=== PATIENT | male | born 1960 | race Caucasian/White ===

== ENCOUNTER 2021-05-05 07:24 | Day surgery (SDC) | payer BC, SELFPAY ==
[2021-05-05] MEDS ORDERED: BUPIVACAINE 0.25% PF 10 ML VIAL ONE (07:45)
[2021-05-05] MEDS ORDERED: NA CHLORIDE 0.9% 50 ML ONE (07:46)
[2021-05-05] MEDS ORDERED: HEPARIN 5000 UNIT/ML 1 ML VIAL ONE (07:46)
[2021-05-05] MEDS ORDERED: NA CHLORIDE 0.9% 1,000 ML ONE (07:46)
[2021-05-05] MEDS ORDERED: CEFAZOLIN/NS 1gm 1 GM/50 ML BAG ONE (07:47)
[2021-05-05] MEDS ORDERED: propofoL 200 MG/20 ML VIAL IV ONE (08:47)
[2021-05-05] MEDS ORDERED: FENTANYL CITR 100 MCG/2 ML ONE (08:47)
[2021-05-05] MEDS ORDERED: MIDAZOLAM HCL 2 MG/2 ML INJ ONE (08:47)
[2021-05-05] MEDS ORDERED: LIDOCAINE 1% MPF 5 ML VIAL ONE (08:47)
[2021-05-05] MEDS ORDERED: KETOROLAC 30 MG/ML INJ ONE (09:08)
[2021-05-05] MEDS ORDERED: ONDANSETRON 4 MG/2 ML VIAL ONE (09:08)
--- NOTE | 2021-05-05 09:45 | P.OP ---
Preoperative diagnosis: Esophageal Cancer Postoperative diagnosis: Esophageal Cancer Primary procedure: Placement of Chemotherapy Port - Port a cath Secondary procedure: ultrasound and flouroscopy used Anesthesia: GETA + Local Estimated blood loss: <5cc Specimen: none Findings: flouroscopy and ultrasound confirmed position Complications: None Implants: Bard implantable port Transferred to: Recovery Room Condition: Good
--- NOTE | 2021-05-05 10:23 | RAD REPORT ---
EXAM DESCRIPTION: RAD - Chest Single View - 05/05/2021 10:09 am CLINICAL HISTORY: s/p port a cath insertion COMPARISON: CT RAD RX FIELD SPINE dated 04/18/2021 FINDINGS: Lines: Right IJ approach Port-A-Cath with tip overlying the SVC. Lungs: Chronic subpleural reticular opacities bilaterally. No acute process. Pleural: No significant pleural effusions or pneumothorax. Cardiac: The heart size is within normal limits. Bones: No acute fractures. Other: IMPRESSION: Chronic changes without superimposed acute process. Right IJ approach Port-A-Cath with t ip overlying the SVC. No pneumothorax.
[2021-05-05 10:39] VITALS: BP 112/69; TEMP 97; O2SAT 96
--- NOTE | 2021-05-05 10:52 | RAD REPORT ---
EXAM DESCRIPTION: RAD - Fluoroscopy >1 Hr - 05/05/2021 9:54 am CLINICAL HISTORY: PORT A CATH PLACEMENT COMPARISON: No comparisons FINDINGS/IMPRESSION: Multiple intraoperative fluoroscopic images were submitted showing placement of a right IJ approach Port-A-Cath. The tip overlies the SVC. Total fluoro time: 0.6 minutes Total dose: 5.77 mGy Four images submitted.
--- NOTE | 2021-05-05 18:58 | OP ---
Date of Procedure: 05/05/2021 Surgeon: Jose Tran MD, Preoperative Diagnosis: Esophageal cancer. Postoperative Diagnosis: Esophageal cancer. Procedure Performed: Placement of a chemotherapy port, Port-A-Cath in the right internal jugular vei n. Secondary Procedure: Ultrasound fluoroscopy utilized with interpretation intraoperatively for positi oning. Anesthesia: General endotracheal plus local with 0.25% Marcaine without epinephrine. Estimated Blood Loss: Less than 5 cc. Specimen: None. Findings: Fluoroscopic and ultrasound guidance confirmed position at the confluence of the SVC and t he port flushed easily and it was packed with heparin. Complications: None. Implants: Bard implantable port and with subcutaneous pump. Disposition: The patient was transferred to recovery room in good condition. Procedure In Detail: After informed consent was obtained, patient was brought to the operating room, prepped and draped in the usual sterile fashion after adequate anesthesia was achieved. Patient was placed in steep Trendelenburg position. At this point, I used the ultrasound guidance to cannulate the right internal jugular vein under ultrasound guidance. A micro wire was advanced at this point. Needle was removed. Fluoroscopy confirmed position at the SVC. At this point, I made a daren incisi on overlying the insertion site and then I placed the microintroducer sheath and the micro wire was r emoved. A standard wire was advanced at this point. Fluoroscopy once again confirmed position at th e SVC and into the right atrium. At this point, I located a position on the chest wall in the infrac lavicular position, anesthetized the skin and subcutaneous tract up to the insertion site. I removed some of the adipose tissue down to the prepectoral fascia to allow for implantation of the port. I then used a tunneling device, brought the port tubing into the insertion site and then removed the mi crointroducer sheath and using Seldinger technique, I advanced the standard introducer sheath at this point, and using fluoroscopic guidance, I introduced the catheter into the SVC confluence. At this point, I had clamped off the catheter and ultimately the wire and introducer sheath were removed. At this point, I then brought the lock for the port on and placed it on the tubing and trimmed the cath eter appropriately, placed it onto the port and placed a locked collar in place. At this point, I te sted the port with sterile saline and it flushed quite easily. Fluoroscopy confirmed position once a gain after appropriately trimming the catheter. I then secured it to the chest wall with the three 2 -0 Prolene sutures and tested the port again with sterile saline after it was in the anatomic positio n and it flushed quite easily. Fluoroscopy confirmed position one last time. I then irrigated both incision sites, closed the neck insertion site with an interrupted 3-0 nylon suture and a sterile brenda ssing placed over top. I then turned my attention at the port site. I irrigated this area once agai n. Hemostasis was easily achieved without any additional hemostatic maneuvers at this point. I then closed the deep dermal layer with interrupted 3-0 Vicryl sutures and then closed the skin with a 4-0 Monocryl in interrupted fashion. Dermabond was placed over the top. I then packed the port with he salma super flush at this point, and the patient was taken out of Trendelenburg position. The proced ure tolerated the procedure well without evidence of complication and transferred to PACU in good con dition. All counts were correct at the end of the case. ANNAMARIE/TRAMAINE Voice ID: [id number] Report ID: [id number]
== END 2021-05-05 11:35 | disposition home or self-care (01) ==
LOC: OR 07:24
PROVIDERS: ATTEND Surgery
PROC: 0JH60WZ Insertion of Totally Implantable Vascular Access Device into Chest Subcutaneous Tissue and Fascia, Open Approach (ICD-10-PCS; principal; 2021-05-05 08:45)
DX: C15.9 Malignant neoplasm of esophagus, unspecified (principal); Z20.822 Contact with and (suspected) exposure to COVID-19
CPT/HCPCS: 82947; 71045; 36561; U0003; J2704; J1644 ×2; J2250; J3010; J0690; J7030; J2405

== ENCOUNTER 2021-05-26 11:09 | Emergency (ER) | payer BC, SELFPAY ==
--- OUTSIDE RECORDS SUMMARY | 2021-05-26 11:12 | XMS REPORT | Continuity of Care Document ---
:1960 Author Organization [facility] t Address [address] [place] [address] Care Team Providers Name Role Phone Kyle BECERRA Primary Care Physician Unavailable NELLY BUTLER Attending Clinician Unavailable CARRIE Attending Clinician Unavailable Singer CHOWDARY Attending Clinician GARCÍA Attending Clinician Unavailable IHDE_G Attending Clinician Unavailable HUTTON_L Attending Clinician Unavailable NELLY BUTLER Admitting Clinician Unavailable GARCÍA Admitting Clinician Unavailable IHDE_G Admitting Clinician Unavailable HUTTON_L Admitting Clinician Unavailable Payers Payer Name Policy Type Policy Number Effective Date Expiration Date S the neurom[employer] centermelania BCBS ADV O [id number] 2021 EXCHANGE 00:00:00 BLUE ADVANTAGE [id number] [facility] [place] Problems Condition Condition Condition Status Onset Resolution Last Treating Co mments Source Name Details Category Date Date Treatment Clinician Date Esophageal Esophageal Disease [facility]01 [place] (HCCode) (HCCode) 00:00: of 00 Medicin e Ureteric Ureteric Problem Active [place] [facility] Allergies, Adverse Reactions, Alerts Allergy Allergy Status Severity Reaction(s) Onset Inactive Treating Comm ents Source Name Type Date Date Clinician NO KNOWN Drug Active Univers ALLERGIE Class ity of S [facility] Social History Social Habit Start Date Stop Date Quantity Comments Source Exposure to Not sure [facility] e SARS-CoV-2 (event) of Med icine History [facility] ge Alcohol Frequency of Medi cine History [facility] ge Alcohol Std Drinks of Med icine History [facility] Alcohol Binge of Medicine Alcohol intake 2021-03-03 2021-03-03 Current drinker [facility] 00:00:00 00:00:00 of alcohol of Medicine (finding) Alcohol Comment 2021-03-02 2021-03-02 minimual [facility] 00:00:00 00:00:00 of Medicine Cigarettes smoked 2021-03-02 2021-03-02 [facility] current (pack per 00:00:00 00:00:00 of Medi day) - Reported Tobacco use and 2021-03-02 2021-03-02 Smokeless tobacco [facility] exposure 00:00:00 00:00:00 non-user of Medicine Sex Ass[birth year] [facility] llege 00:00:00 00:00:00 of Medicine Smoking Status Start Date Stop Date Source Unknown if ever smoked [facility] Ex-smoker 2021-03-02 00:00:00 2021-03-02 00:00:00 [facility] ollekayla of Medicine Medications Ordered Filled Start Stop Current Ordering Indication Dosage Frequency Signature Comments Components Source Medication Medication Date Date Medication? Clinician (SIG) Name Name iopamidol 2020- No [id number] 120mL 120 mL, Univers (ISOVUE 12-23 Intravenou ity o f 370-500 mL) 14:54: 14:54 s, ONCE, 1 [place] injection 00 :00 dose, On Medica l 120 mL Fri Branch 12/23/20 at 1015, Routine dexamethaso 2020- No 10mg 10 mg, IV Univers ne 12-23 Push, ity of (DECADRON 14:45: 14:07 [place] PHOSPHATE[place] 00 :00 dose, On Medic al injection Fri Branch 10 mg 12/23/20 at 0945, STAT iohexol 2020- No [id number] 25mL 25 mL, Uni vers (OMNIPAQUE 12-23 Oral, ity of 350 BULK) 14:15: 14:05 ONCE, 1 [place] 25 mL 00 :00 dose, On Medical Fri Branch 12/23/20 at 0915, Routine NaCl 0.9% No 500mL at 999 Univ ers (NS) bolus 12-23 mL/hr, 500 it y of infusion 13:45: 15:12 mL, IV [place] 500 mL 00 :00 Infusion, Medical ONCE, 1 Branch dose, On 12/23/20 at 0845, STAT sucralfate Yes [id number] 1000mg Take 10 mL Univers (CARAFATE) 12-23 by mouth ity o f 100 mg/mL 00:00: before [place] suspension 00 meals and Medi linus at Branch bedtime. glimepiride Yes 2mg Take 2 mg B [place] (AMARYL) 2 12-15 by mouth Colle ge MG tablet 00:00: daily. of Medicin e metformin metformin No 2 BID metformin [place] 500 mg 500 mg 500 mg da tablet Take tablet Take tablet Medical 2 tablets 2 tablets Take 2 [place] up twice a day twice a day tablets by oral by oral twice a route. route. day by oral route. Vital Signs Vital Name Observation Time Observation Value Comments Source Systolic blood 2021-03-02 21:33:00 159 mm[Hg] [facility] pressure Medicine Diastolic blood 2021-03-02 21:33:00 92 mm[Hg] [facility] Medicine Heart rate 2021-03-02 21:33:00 83 /min [facility] Body temperature 2021-03-02 21:33:00 36.83 [facility] Body weight 2021-03-02 21:33:00 86.183 kg [facility] Systolic blood 2020-12-23 17:00:00 151 mm[Hg] Univer sity of [facility] Diastolic blood 2020-12-23 17:00:00 81 mm[Hg] Unive rsity [facility] Heart rate 2020-12-23 17:00:00 65 /min Universi ty of [facility] Respiratory rate 2020-12-23 17:00:00 18 /min [facility] Oxygen saturation in 2020-12-23 17:00:00 97 /min [facility] Arterial blood by [facility] Pulse oximetry Branch Body temperature 2020-12-23 13:31:00 36.61 Daisy [facility] Body weight 2020-12-23 13:31:00 86.183 kg [facility] BP Diastolic 2019-05-05 00:00:00 80 mm[Hg] [facility] Height 2019-05-05 00:00:00 69 [in_i] [facility] BMI (Body Mass 2019-05-05 00:00:00 32.3 kg/m2 [facility] specialist Medical Index) Group BP Systolic 2019-05-05 00:00:00 138 mm[Hg] [facility] Body Weight 2019-05-05 00:00:00 218.9 [lb_av] [facility] Procedures Procedure Date / Time Performed Performing Clinician Lisa e CT ABDOMEN PELVIS W 2020-12-23 15:07:47 Roberta García [facility] CONTRAST [facility] COMP. METABOLIC PANEL 2020-12-23 14:05:00 Roberta García [facility] ([id number]) [facility] CBC WITH DIFF 2020-12-23 14:05:00 Singer [facility] XR CHEST 1 VW 2020-12-23 14:02:59 [facility] NOTICE OF PRIVACY 2020-12-23 13:28:24 Doctor Unassigned, No [facility] PRACTICES Name [facility] CONSENT/REFUSAL FOR 2020-12-23 13:28:08 Doctor Unassigned, No [facility] DIAGNOSIS AND Name Medical [place] TREATMENT Plan of Care Planned Activity Planned Date Details Comments Source Future Scheduled 2021-03-08 Screening for malignant [facility] 13:18:05 neoplasm of colon Medicine (procedure) [code = 384039988] Future Scheduled 2021-03-08 COVID-19 Vaccine (1) [facility] 13:18:05 [code = COVID-19 Vaccine Med icine (1)] Future Scheduled 2021-03-08 TETANUS SHOT (ADULT) [facility] 13:18:05 [code = TETANUS SHOT Medicin e (ADULT)] Future Scheduled 2021-03-08 Hepatitis C screening Ba [facility] 13:18:05 (procedure) [code = Medicine 645698527] Future Scheduled 2021-03-08 Human immunodeficiency B [facility] 13:18:05 virus screening Medicine (procedure) [code = 730905789] Future Scheduled 2021-03-08 ZOSTER VACCINE (1 of 2) [facility] 13:18:05 [code = ZOSTER VACCINE (1 Me dicine of 2)] Future Scheduled 2021-03-08 FLU VACCINE > 6 MONTHS B [facility] 13:18:05 [code = FLU VACCINE > 6 Medi cine MONTHS] Encounters Start End Encounter Admission Attending Care Care Encounter Source Date/Time Date/Time Type Type Clinicians Facility Department ID 2021-05-23 Outpatient LESLYE ZACARIAS Surgery [id number] [facility] 10:48:50 EMILY 2021-03-02 2021-03-08 Office SILVIA BUTLER [id number] [facility] 14:53:08 19:53:03 Visit EMILY AMBULATOR [id number] College Y 0.2.7.2.686 of [id number] [facility] 810 e 2020-12-23 2020-12-23 Emergency KRISTIN García [id number] Univers 08:31:00 12:44:00 Roberta Thao 350.1.13.10 i ty [facility] 4.2.7.2.686 [facility] [id number] [facility] 084 Branch 2020-12-23 2020-12-23 Emergency X SINGER VAREBECCA ERT [id number] Univers 08:31:00 12:44:00 ROBERTA gorman of [facility] 2020-02-17 2020-02-17 Outpatient IHDE_G [facility] [id number] [place] 02:41:00 02:41:00 118 Medical Group 2019-11-26 2019-11-26 Outpatient IHDE_G [facility] [id number] 200 [place] 12:08:00 12:08:00 827 da Medical Group 2019-05-06 2019-05-06 Outpatient IHDE_G [facility] [id number] 200 [place] 11:15:00 11:15:00 206 Medical Group 2019-05-06 2019-05-06 Outpatient IHDE_G MMG MMG [id number] 200 [place] 06:49:00 06:49:00 205 Medical Group 2019-05-05 2019-05-05 Outpatient IHDE_G MMG MM [id number] 200 [place] 05:55:00 05:55:00 204 Medical Group 2019-05-05 2019-05-05 Kartik [facility] [place] - [id number] M at[place] 00:00:00 00:00:00 Javier Jimenez MD: Medical Medica [address], [place] [address] , Ph. [phone] 2019-04-28 2019-04-28 Outpatient HUTTON_L MMG [facility] [id number] [place] 11:31:00 11:31:00 128 [facility] Results Test Description Test Time Test Comments Results Result Comments Source COMP. METABOLIC PANEL (90868) 2020-12-23 14:43:18 Test Item Value Reference Range Interpretation Comme nts NA (test code = 9452809627) 137 mmol/L 135-145 K (test code = 7679519916) 4.3 mmol/L 3.5-5.0 CL (test code = 3928274975) 104 mmol/L 98-108 CO2 TOTAL (test code = 7912472684) 27 mmol/L 23-31 AGAP (test code = 5614467216) 2-16 BUN (test code = 1221881814) 21 mg/dL 7-23 GLUCOSE (test code = 5203606919) 131 mg/dL 70-110 H CREATININE (test code = 1.20 mg/dL 0.60-1.25 1193864150) TOTAL BILI (test code = 0.4 mg/dL 0.1-1.1 8747325927) CALCIUM (test code = 1548744859) 9.4 mg/dL 8.6-10.6 T PROTEIN (test code = 0699136218) 7.7 g/dL 6.3-8.2 ALBUMIN (test code = 0069706328) 4.3 g/dL 3.5-5.0 ALK PHOS (test code = 1166278768) 70 U/L 34-122 ALTv (test code = 1742-6) 25 U/L 5-50 AST(SGOT) (test code = 3287454113) 28 U/L 13-40 eGFR (test code = 6491020602) mL/min/1.73m2 KAMRYN (test code = KAMRYN) Association of Glomerular Filtration Rate (GFR) and Staging of Kidney Disease* + +-------- + ------+| GFR (mL/min/1.73 m2) ?| With Kidney Damage ?| ?Without Kidney Damage+ +-- + +| ?>90 ?| ?Stage one ?| ? Normal ?+ +------- + -------+| ?60-89 ?| ?Stage two ?| ? Decreased GFR ? + +-------- + ------+| ?30-59 ?| ?Stage three ?| ? Stage three ? + +-------- + ------+| ?15-29 ?| ?Stage four ? | ? Stage four ?+ +------- + -------+| ?<15 (or dialysis) ? ?| ?Stage five ? | ? Stage five ?+ +------- + -------+ *Each stage assumes the associated GFR level has been in effect for at least three months. ?Stages 1 to 5, with or without kidney disease, indicate chronic kidney disease. Notes: Determination of stages one and two (with eGFR >59mL/min/1.73 m2) requires estimation of kidney damage for at least three months as defined by structural or functional abnormalities of the kidney, manifested by either:Pathological abnormalities or Markers of kidney damage (including abnormalities in the composition of the blood or urine or abnormalities in imaging tests). Lab Interpretation (test code = Abnormal 45179-9) [facility] WITH [id number] 14:37:39 Test Item Value Reference Range Interpretation Comments WBC (test code = See_Comment [Automated message] 6690-2) The system [employer] generated this result transmitted ref erence range: 4.20 - 1 0.70 10*3/?L. The re ference range was not u sed to interpret this result as normal/abnor mal. RBC (test code = See_Comment [Automated message] 789-8) The system [employer] generated this result transmitted ref erence range: 4.26 - 5 .52 10*6/?L. The re ference range was not u sed to interpret this result as normal/abnor mal. HGB (test code = 14.5 g/dL 12.2-16.4 718-7) HCT (test code = 43.3 % 38.4-49.3 4544-3) MCV (test code = 90.0 fL 81.7-95.6 787-2) MCH (test code = 30.1 pg 26.1-32.7 785-6) MCHC (test code = 33.5 g/dL 31.2-35.0 786-4) RDW-SD (test code 40.8 fL 38.5-51.6 = 33462-5) RDW-CV (test code 12.3 % 12.1-15.4 = 788-0) PLT (test code = See_Comment [Automated message] 777-3) The system [employer] generated this result transmitted ref erence range: 150 - 32 8 10*3/?L. The re ference range was not u sed to interpret this result as normal/abnor mal. MPV (test code = 9.9 fL 9.8-13.0 37094-7) NRBC/100 WBC (test See_Comment [Automat ed message] code = 5210732804) The [employer] which generated this result transmitted ref erence range: 0.0 - 10 .0 /100 WBCs. The refer ence range was not u sed to interpret this result as normal/abnor mal. NRBC x10^3 (test <0.01 See_Comment [Automated message] code = 6746097842) The syste m which generated this result transmitted ref erence range: 10*3/?L. The reference range was not used to interpr et this result as normal/abnormal . GRAN MAT (NEUT) % 68.1 % (test code = 770-8) IMM GRAN % (test 0.40 % code = 2611736810) LYMPH % (test code 21.4 % = 736-9) MONO % (test code 7.1 % = 5905-5) EOS % (test code = 2.2 % 713-8) BASO % (test code 0.8 % = 706-2) GRAN MAT 5.68 10*3/uL 1.99-6.95 x10^3(ANC) (test code = 0875085433) IMM GRAN x10^3 0.03 10*3/uL 0.00-0.06 (test code = 7592167018) LYMPH x10^3 (test 1.78 10*3/uL 1.09-3.23 code = 731-0) MONO x10^3 (test 0.59 10*3/uL 0.36-1.02 code = 742-7) EOS x10^3 (test 0.18 10*3/uL 0.06-0.53 code = 711-2) BASO x10^3 (test 0.07 10*3/uL 0.01-0.09 code = 704-7) [facility] SHOULDER JNT LT WCLINICAL INDICATION: M75.102 Unsp rotatr-cuff tear/ruptr of left shoulder, not trauma. MODALITY: Avanto 1.5 Becky 18 channel MRITECHNIQUE: Multiplanar multi sequence MRI examination of the left shoulder was performed following intra-articular gadolinium administration. Arthrogram is reported separately.IMPRESSION:1. Full-thickness tear of the supraspinatus tendon measuring 2 cm in the AP diam eter. The torn fibers are retracted 2 cm with mild atrophy with the muscle belly.2. Delamination tear of the subscapularis tendon. The long head of the biceps tendon has subluxed and is perched on thelesser tuberosity. It still inserts on the superior labrum.3. No other acute findings.4. Case discussed with referral Doctor.FINDINGS:COMPARISON: None.OSSEOUS ACROMIAL OUTLET: Changes consistent with prior acromioplasty.ROTATOR CUFF: Full-thickness tear of the supraspinatus tendon measuring at least 2 cm in the AP diameter. The torn fibers are retracted 2 cm. The infraspinatus, teres minor, and subscapularis remain intact.LABRUM AND CAPSULAR STRUCTURES: Lauren appear intact.BICEPS TENDON: Long head of biceps tendon is intact. Biceps anchor appears unremarkable.OSSEOUS STRUCTURES: No fractures ordestructive osseous lesions are detected. Marrow signal is unremarkable. Changes suggest prior acromioplasty with micro metallic artifact noted within the adjacent superior subcutaneous tissues.MISCELLANEOUS FINDINGS: No paralabral cyst. No arthritic changes glenohumeral joint.CR - XRAY ARTHROGRAM SHOULDER LT / INJECTIONCLINICAL INDICATION: M25.512 Pain in left [id number] Unsp rotatr-cuff tear/ruptr of left shoulder, not traumaTECHNIQUE: Risks and benefits of the examination were discussed with the patient.Informed consent was obtained. The patient was prepped and draped in the usual sterile fashion. Local anesthesia was affected with lidocaine 1% without epinephrine, administered subcutaneously. A 25gauge needle was directed into the left glenohumeral joint under fluoroscopic guidance via anterior approach. A small amount of nonionic contrast was injected, demonstrating intra-articular position of needle tip. Subsequently, approximately 10 ml Gadolinium solution (gadolinium in normal saline, 1:200) was injected into the joint without incident. Multiple spot films were obtained. No complications were encountered.Total fluoroscopy time: 0.4FINDINGS:COMPARISON: NoneArthrographic appearance ofthe glenohumeral joint is unremarkable. Contrast communication between the glenohumeral joint and subacromial - subdeltoid bursa is not evident.IMPRESSION:Technically successful intra-articular gadolinium injection, left shoulder. Radiology Exposure Data - PQRS 145: 6045F For Official Use Only"
[2021-05-26] MEDS ORDERED: LIDOCAINE VISCOUS 2% SOLN 15 ML UDC ONE (11:38)
[2021-05-26 11:59] LABS: Absolute Lymphocytes (CBC) 0.2 K/uL (0.7-4.9); Hematocrit 40.8 % (39.6-49.0); Lymphocytes % 4.1 % (15.3-44.8); MPV 7.5 fL (7.6-11.3); RBC Red Blood Cell Count 4.67 M/uL (4.33-5.43)
[2021-05-26] MEDS ORDERED: MORPHINE 4 MG/ML SYR ONE (12:05)
[2021-05-26] MEDS ORDERED: NA CHLORIDE 0.9% 1,000 ML ONE (12:05)
[2021-05-26] MEDS ORDERED: ONDANSETRON 4 MG/2 ML VIAL ONE (12:05)
[2021-05-26 12:16] LABS: Albumin 2.8 g/dL (3.4-5.0); Bilirubin Total 0.3 mg/dL (0.2-1.0); Protein, Total 8.1 g/dL (6.4-8.2)
[2021-05-26 12:24] LABS: Potassium 4.6 mmol/L (3.5-5.1)
--- NOTE | 2021-05-26 12:47 | ER ---
Nurse's Notes [facility] Name: Chuy Mccoy Age: 60 yrs Sex: Male : 1960 Arrival Date: 05/26/2021 Time: 11:11 Bed 5 Private MD: Diagnosis: Upper abdominal pain, unspecified Presentation: 05/26 11:27 Chief complaint: Patient states: Was sent to ED from [facility], [place], hx of esophageal vg1 cancer/tumor of esophagus; states during chemo was experiencing esophageal pain and was having intolerance of fluids. Sates pain 01/08. Coronavirus screen: Vaccine status: Patient reports being unvaccinated. Client denies travel out of the [place] in the last 14 days. Ebola Screen: Patient negative for fever greater than or equal to 101.5 degrees Fahrenheit, and additional compatible Ebola Virus Disease symptoms. Initial Sepsis Screen: Does the patient meet any 2 criteria? No. Patient's initial sepsis screen is negative. Does the patient have a suspected source of infection? No. Patient's initial sepsis screen is negative. Risk Assessment: Do you want to hurt yourself or someone else? Patient reports no desire to harm self or others. Onset of symptoms was May 26, 2021. 11:27 Method Of Arrival: Ambulatory vg1 11:27 Acuity: BERTA 3 vg1 Triage Assessment: 11:30 General: Appears in no apparent distress. uncomfortable, Behavior is calm, cooperative. vg1 Pain: Complains of pain in throat Pain currently is 10 out of 10 on a pain scale. Pain began 30 min ago. EENT: Throat is clear. Neuro: Level of Consciousness is awake, alert, obeys commands, Oriented to person, place, time, situation. Cardiovascular: Patient's skin is warm and dry. Respiratory: Airway is patent Respiratory effort is even, unlabored. GI: Reports intolerance of fluids. : No signs and/or symptoms were reported regarding the genitourinary system. Derm: Skin is intact, is healthy with good turgor. Musculoskeletal: Circulation, motion, and sensation intact. Historical: - Allergies: 11: No Known Allergies; vg1 - PMHx: 11:30 Cancer; Diabetes mellitus; vg1 - Immunization history:: Client reports having NOT received the Covid vaccine. - Social history:: Smoking status: Patient reports the use of cigarette tobacco products, denies chronic smoking, but will smoke occasionally. - Family history:: not pertinent. Screenin:31 Abuse screen: Denies threats or abuse. Nutritional screening: No deficits noted. vg1 Tuberculosis screening: No symptoms or risk factors identified. Fall Risk No fall in past 12 months (0 pts). No secondary diagnosis (0 pts). IV access (20 points). Ambulatory Aid- None/Bed Rest/Nurse Assist (0 pts). Gait- Normal/Bed Rest/Wheelchair (0 pts) Mental Status- Oriented to own ability (0 pts). Total Brandon Fall Scale indicates No Risk (0-24 pts). Assessment: 11:31 Reassessment: SEE TRIAGE. vg1 12:14 Reassessment: Patient appears in no apparent distress at this time. Patient and/or vg1 family updated on plan of care and expected duration. Pain level reassessed. Patient is alert, oriented x 3, equal unlabored respirations, skin warm/dry/pink. 13:00 Reassessment: Patient appears in no apparent distress at this time. Patient and/or jd3 family updated on plan of care and expected duration. Pain level reassessed. Patient is alert, oriented x 3, equal unlabored respirations, skin warm/dry/pink. Vital Signs: 11:27 BP 136 / 78; Pulse 95; Resp 18; Temp 97.5; Pulse Ox 100% ; Weight 74.84 kg; Height 5 vg1 ft. 9 in. (175.26 cm); Pain 10/10; 11:30 BP 109 / 71; Pulse 85; Resp 16; Pulse Ox 100% ; vg1 11:27 Body Mass Index 24.37 (74.84 kg, 175.26 cm) vg1 ED Course: 11:11 Patient arrived in ED. ds1 11:15 Leroy Narayan MD is Attending Physician. ma2 11:27 Lucero Liu, RN is Primary Nurse. vg1 11:29 Triage completed. vg1 11:30 Arm band placed on. vg1 11:31 Patient has correct armband on for positive identification. Bed in low position. Call 1 light in reach. Side rails up X 1. Adult w/ patient. 11:31 No provider procedures requiring assistance completed. vg1 11:44 CBC with Diff Sent. tp1 11:44 CMP Sent. tp1 11:44 Inserted saline lock: 20 gauge in right antecubital area, using aseptic technique. tp1 Blood collected. 12:46 Malachi Carter MD is Referral Physician. ma2 13:01 IV discontinued, intact, bleeding controlled, No redness/swelling at site. Pressure jd3 dressing applied. Administered Medications: 11:38 Drug: Lidocaine Gel 2 % 1 application Route: Mucous Membrane; vg1 12:12 Follow up: Response: No adverse reaction; Pain is decreased vg1 12:05 Drug: Zofran (Ondansetron) 4 mg Route: IVP; Site: right antecubital; vg1 13:02 Follow up: Response: No adverse reaction jd3 12:05 Drug: NS 0.9% 1000 ml Route: IV; Rate: 1 bolus; Site: right antecubital; vg1 13:02 Follow up: Response: No adverse reaction; IV Status: Completed infusion jd3 12:07 Drug: morphine 4 mg Route: IVP; Site: right antecubital; vg1 13:02 Follow up: Response: No adverse reaction; RASS: Alert and Calm (0) jd3 Outcome: 12:46 Discharge ordered by MD. ma2 13:00 Discharged to home ambulatory, with family. jd3 13:00 Condition: stable 13:00 Discharge instructions given to patient, family, Instructed on discharge instructions, follow up and referral plans. medication usage, Demonstrated understanding of instructions, follow-up care, medications, Prescriptions given X 1. 13:02 Patient left the ED. jd3 Signatures: Kaur Randle Jonathon, RN RN jd3 Leroy Narayan MD MD ma2 Garcia, Victoria, RN RN vg1 Isidra Morris tp1
--- NOTE | 2021-05-26 12:47 | EDPHYS ---
Physician Documentation [facility] Name: Chuy Mccoy Age: 60 yrs Sex: Male : 1960 Arrival Date: 05/26/2021 Time: 11:11 Bed 5 Private MD: ED Physician Leroy Narayan HPI: 05/26 11:49 This 60 yrs old Male presents to ER via Ambulatory with complaints of sent by cancer ma2 center. 11:49 60-year-old male, with esophageal cancer, sent here by radiation oncologist for pain ma2 management as he is out of his hydrocodone, and he is having painful swallowing that has been constant for 2 months moderate, he states that there is no new symptoms over the last 2 weeks, it's a constant chronic dysphagia, and he is out of his hydrocodone. Historical: - Allergies: 11:30 No Known Allergies; vg1 - PMHx: 11:30 Cancer; Diabetes mellitus; vg1 - Immunization history:: Client reports having NOT received the Covid vaccine. - Social history:: Smoking status: Patient reports the use of cigarette tobacco products, denies chronic smoking, but will smoke occasionally. - Family history:: not pertinent. ROS: 11:49 Constitutional: Negative for fever, chills, and weight loss. ma2 11:49 All other systems are negative. Exam: 11:49 Constitutional: This is a well developed, well nourished patient who is awake, alert, ma2 and in no acute distress. Head/Face: Normocephalic, atraumatic. Eyes: Pupils equal round and reactive to light, extra-ocular motions intact. Lids and lashes normal. Conjunctiva and sclera are non-icteric and not injected. Cornea within normal limits. Periorbital areas with no swelling, redness, or edema. ENT: Nares patent. No nasal discharge, no septal abnormalities noted. Tympanic membranes are normal and external auditory canals are clear. Oropharynx with no redness, swelling, or masses, exudates, or evidence of obstruction, uvula midline. Mucous membranes moist. Neck: Trachea midline, no thyromegaly or masses palpated, and no cervical lymphadenopathy. Supple, full range of motion without nuchal rigidity, or vertebral point tenderness. No Meningismus. Chest/axilla: Normal chest wall appearance and motion. Nontender with no deformity. No lesions are appreciated. Cardiovascular: Regular rate and rhythm with a normal S1 and S2. No gallops, murmurs, or rubs. Normal PMI, no JVD. No pulse deficits. Respiratory: Lungs have equal breath sounds bilaterally, clear to auscultation and percussion. No rales, rhonchi or wheezes noted. No increased work of breathing, no retractions or nasal flaring. Abdomen/GI: Soft, non-tender, with normal bowel sounds. No distension or tympany. No guarding or rebound. No evidence of tenderness throughout. Skin: Warm, dry with normal turgor. Normal color with no rashes, no lesions, and no evidence of cellulitis. MS/ Extremity: Pulses equal, no cyanosis. Neurovascular intact. Full, normal range of motion. Neuro: Awake and alert, GCS 15, oriented to person, place, time, and situation. Cranial nerves II-XII grossly intact. Motor strength 5/5 in all extremities. Sensory grossly intact. Cerebellar exam normal. Normal gait. Vital Signs: 11:27 BP 136 / 78; Pulse 95; Resp 18; Temp 97.5; Pulse Ox 100% ; Weight 74.84 kg; Height 5 vg1 ft. 9 in. (175.26 cm); Pain 10/10; 11:30 BP 109 / 71; Pulse 85; Resp 16; Pulse Ox 100% ; vg1 11:27 Body Mass Index 24.37 (74.84 kg, 175.26 cm) vg1 MDM: 11:23 Patient medically screened. ma2 12:46 Differential diagnosis: Chronic abdominal pain, likely from esophageal cancer, versus ma2 duodenal ulcer versus gastritis. Data reviewed: vital signs, nurses notes. Counseling: I had a detailed discussion with the patient and/or guardian regarding: the historical points, exam findings, and any diagnostic results supporting the discharge/admit diagnosis, the presence of at least one elevated blood pressure reading (>120/80) during this emergency department visit, the need for outpatient follow up. Response to treatment: the patient's symptoms have markedly improved after treatment. 05/26 11:23 Order name: CBC with Diff ma2 05/26 11:23 Order name: CMP; Complete Time: 12:46 ma2 Administered Medications: 11:38 Drug: Lidocaine Gel 2 % 1 application Route: Mucous Membrane; vg1 12:12 Follow up: Response: No adverse reaction; Pain is decreased vg1 12:05 Drug: Zofran (Ondansetron) 4 mg Route: IVP; Site: right antecubital; vg1 13:02 Follow up: Response: No adverse reaction jd3 12:05 Drug: NS 0.9% 1000 ml Route: IV; Rate: 1 bolus; Site: right antecubital; vg1 13:02 Follow up: Response: No adverse reaction; IV Status: Completed infusion jd3 12:07 Drug: morphine 4 mg Route: IVP; Site: right antecubital; vg1 13:02 Follow up: Response: No adverse reaction; RASS: Alert and Calm (0) jd3 Disposition Summary: 05/26/21 12:46 Discharge Ordered Location: Home ma2 Condition: Stable ma2 Diagnosis - Upper abdominal pain, unspecified ma2 Followup: ma2 - With: Private Physician - When: Tomorrow - Reason: Continuance of care Followup: ma2 - With: - When: Tomorrow - Reason: If symptoms return, Continuance of care Discharge Instructions: - Discharge Summary Sheet ma2 - Abdominal Pain, Adult ma2 Forms: - Medication Reconciliation Form ma2 - Thank You Letter ma2 - Antibiotic Education ma2 - Prescription Opioid Use ma2 Prescriptions: - Diclofenac Sodium 75 mg Oral Tablet Sustained Release - take 1 tablet by ORAL route 2 times per day; 30 tablet; Refills: 0, Product ma2 Selection Permitted Signatures: Dispatcher [employer] Leroy Granados MD MD ma2 Lucero Liu RN FEDE vg1 Chun Thornton RN jd3
[2021-05-26 13:09] VITALS: TEMP 97.5; O2SAT 100
[2021-05-26 13:10] VITALS: BP 109/71
[2021-05-26 14:05] LABS: Blood Morphology Comment NOT SEEN (NOT SEEN); Platelet Estimate ADEQ; White Blood Cell Scan OK (OK)
== END 2021-05-26 13:02 | disposition home or self-care (01) ==
LOC: ER 11:09
DX: R07.0 Pain in throat (principal); C15.9 Malignant neoplasm of esophagus, unspecified; F17.210 Nicotine dependence, cigarettes, uncomplicated
CPT/HCPCS: 96361; 85025; 36415; 80053; 96375; 96374; 99284; J7030; J2405

== ENCOUNTER 2021-07-31 14:29 | Emergency (ER) | payer BC, SELFPAY ==
--- OUTSIDE RECORDS SUMMARY | 2021-07-31 14:33 | XMS REPORT | Continuity of Care Document ---
:1960 Author Organization [facility] t Address [address] [place] [address] Care Team Providers Name Role Phone Kyle BECERRA Primary Care Physician Unavailable NELLY BUTLER Attending Clinician Unavailable Padmaja MARSHALL Attending Clinician SHRAVAN GIRARD Attending Clinician Unavailable LAYLA Attending Clinician Unavailable IHDE_G Attending Clinician Unavailable PADMAJA Attending Clinician Unavailable Singer CHOWDARY Attending Clinician Attending Clinician Unavailable TOYIN Attending Clinician Unavailable NELLY BUTLER Admitting Clinician Unavailable ROSALVA LORENZ Admitting Clinician Unavailable IHDE_G Admitting Clinician Unavailable GARCÍA Admitting Clinician Unavailable HUTTON_L Admitting Clinician Unavailable Payers Payer Name Policy Type Policy Number Effective Date Expiration Date S ourmelania BCBS ADV HMO [id number] 2021 EXCHANGE 00:00:00 Problems Condition Condition Condition Status Onset Resolution Last Treating Co mments Source Name Details Category Date Date Treatment Clinician Date Esophageal Esophageal Disease Active [facility] adenocarci adenocarci 3-10 [employer] llege noma noma 00:00: of 00 Medicin e Ureteric Ureteric Disease Active [facility] 3-10 [facility] 00:00: of 00 Medicin e Esophageal Esophageal Disease Active 2020-04 [facility] cancer cancer 0-01 [place] (HCCode) (HCCode) 00:00: of 00 Medicin e Diabetes Diabetes Disease Active [facility] 6-30 [place] 00:00: of 00 Medicin e Allergies, Adverse Reactions, Alerts Allergy Allergy Status Severity Reaction(s) Onset Inactive Treating Comm ents Source Name Type Date Date Clinician NO KNOWN Allergy Active [facility] NO KNOWN Drug Active [facility] Social History Social Habit Start Date Stop Date Quantity Comments Source History [facility] ge Alcohol Frequency of Medi cine History [facility] Alcohol Std Drinks of Med icine History [facility] Alcohol Binge of Medicine Alcohol intake 2021-07-09 2021-07-09 Current drinker [facility] 00:00:00 00:00:00 of alcohol of Medicine (finding) Exposure to 2021-06-19 2021-06-29 Not sure [facility] SARS-CoV-2 (event) 00:00:00 10:18:00 of Med icine Alcohol Comment 2021-03-02 2021-03-02 minimual [facility] llege 00:00:00 00:00:00 of Medicine Cigarettes smoked 2021-03-02 2021-03-02 [facility] current (pack per 00:00:00 00:00:00 of Medi cine day) - Reported Tobacco use and 2021-03-02 2021-03-02 Smokeless tobacco [facility] Chelsie exposure 00:00:00 00:00:00 non-user of Medicine Sex [birth year] [facility] llege 00:00:00 00:00:00 of Medicine Smoking Status Start Date Stop Date Source Unknown if ever smoked [facility] Ex-smoker 2021-03-02 00:00:00 2021-03-02 00:00:00 [facility] ollege of Medicine Medications Ordered Filled Start Stop Current Ordering Indication Dosage Frequency Signature Comments Components Source Medication Medication Date Date Medication? Clinician (SIG) Name Name Cyanocobala Yes 1{tbl} Take 1 Ba jeff santos (B-12) 4-07 Tablet by Luanne ege 1000 MCG 17:37: mouth of TABS 04 daily. Medicin e Nutritional Yes 1{can} Take 1-2 [facility] Supplements 4-07 Cans by Rosa Isela garza (GLUCERNA 17:37: mouth of 1.2 DENISHA OR) 04 daily. Medici n Feeding e tube morphine 10 Yes 10mg Take 10 mg Sharif MG/5ML 4-07 by mouth College solution 17:37: every 4 of 04 hours as Medicin needed. 5 e ML via J-Tube for up to 7 days Do Not exceed 60 m (30 ml / day ) ondansetron Yes Sharif (ZOFRAN-ODT 4-06 College ) 4 mg 00:00: of disintegrat 00 Medicin ing tablet e polyethylen Yes Take 17g [facility] e glycol 3-25 twice College (GLYCOLAX) 00:00: daily via of 17 GM/SCOOP 00 J tube as Med icin powder needed for e constipati on. Bisacodyl Yes 10mg Place 10 Bay[facility] or 10 MG/30ML 3-25 mg College ENEM 00:00: rectally. of 00 Medicin e Metformin 2021- Yes 5mL Take 5 mL [facility] HCl 500 -25 -25 by mouth. Colleg e MG/5ML SOLN 00:00: 04:59 of 00 :00 Medicin e fentanyl 2021-0 202- No 1{patch Place 1 [facility] (DURAGESIC) 3-25 04-10 } Patch onto C ollege 50 MCG/HR 00:00: 04:59 the skin. of patch 00 :00 Medicin e morphine 10 Yes 10mg Take 10 mg Sharif MG/5ML 3-10 by mouth College solution 11:04: every 4 of 23 hours as Medicin needed. 5 e ML via J-Tube for up to 7 days Do Not exceed 60 m (30 ml / day ) Acetaminoph 0 2021- No Take by Syeda aylor en 160 3-10 03-10 mouth. College MG/5ML SUSP 11:04: 00:00 of 23 :00 Medicin e Cyanocobala Yes 1{tbl} Take 1 [facility] min (B-12) 3-10 Tablet by Luanne ege 1000 MCG 10:57: mouth of TABS 45 daily. Medicin e Nutritional Yes 1{can} Take 1-2 Sharif Supplements 3-10 Cans by Rosa Isela garza (GLUCERNA 10:57: mouth of 1.2 DENISHA OR) 45 daily. Medici n Feeding e tube gabapentin Yes 250mg 250 mg 3 [facility] (NEURONTIN) 3-05 times College 250 MG/5ML 00:00: daily. 6ml o f solution 00 via J-Tibe Medic in e gabapentin Yes 250mg 250 mg 3 [facility] (NEURONTIN) 3-05 times College 250 MG/5ML 00:00: daily. 6ml o f solution 00 via J-Tibe Medic in e fentanyl 202- Yes 1{patch Place 1 [facility] (DURAGESIC) 3-04 23 } Patch onto C ollege 50 MCG/HR 00:00: 04:59 the skin of patch 00 :00 every 72 Medicin hours. e Magic 0 Yes 5mL Take 5 mL [facility] Mouthwash 2-25 by mouth 4 Luanne ege 00:00: times of 00 daily Medicin (before e meals and nightly). Magic 2021-0 Yes 5mL Take 5 mL [facility] Mouthwash 2-25 by mouth 4 Luanne ege 00:00: times of 00 daily Medicin (before e meals and nightly). Acetaminoph Yes 160mg Take 160 [facility] en 160 2-07 mg by College MG/5ML SUSP 00:00: mouth of 00 every 4 Medicin hours as e needed. 20.3 mls (650mg total) by feed tube Acetaminoph 0 Yes 160mg Take 160 [facility] en 160 2-07 mg by College MG/5ML SUSP 00:00: mouth of 00 every 4 Medicin hours as e needed. 20.3 mls (650mg total) by feed tube hydrocodone 0 2021- No TAKE 15 ML [facility] -acetaminop 1-27 03-10 BY MOUTH Col lege hen (HYCET) 00:00: 00:00 EVERY 4 TO of 7.5-325 00 :00 6 HOURS Medici n MG/15ML NEEDED FOR e solution PAIN iopamidol 2020- No [id number] 120mL 120 mL, Univers (ISOVUE 12-23 Intravenou [...] 12/23/20 at 0945, STAT iohexol 2020- No [id number] 25mL 25 mL, Uni vers (OMNIPAQUE 12-23 Oral, ity of 350 BULK) 14:15: 14:05 ONCE, 1 [place] 25 mL 00 :00 dose, On Medical Fri Branch 12/23/20 at 0915, Routine NaCl 0.9% 2020- No 500mL at 999 Univ ers (NS) bolus 12-23 mL/hr, 500 it y of infusion 13:45: 15:12 mL, IV [place] 500 mL 00 :00 Infusion, Medical ONCE, 1 Branch dose, On 12/23/20 at 0845, STAT sucralfate 0 Yes [id number] 1000mg Take 10 mL Univers (CARAFATE) 12-23 by mouth ity o f 100 mg/mL 00:00: before [place] suspension 00 meals and Medi denisha at [place] bedtime. sucralfate 2020-0 Yes 1g Take 1 g [place] pedro (CARAFATE) 9-24 by mouth 3 Col lege 1 GM/10ML 00:00: times of suspension 00 daily. 10 Medi mansi ML 3 x a e day after meals sucralfate 2020-0 Yes 1g Take 1 g [place] (CARAFATE) 9-24 by mouth 3 Col lege 1 GM/10ML 00:00: times of suspension 00 daily. 10 Medi mansi ML 3 x a e day after meals glimepiride 2020-0 Yes 2mg Take 2 mg [facility] (AMARYL) 2 12-15 by mouth Colle ge MG tablet 00:00: daily. of 00 Medicin e glimepiride 2021- No 2mg Take 2 mg [facility] (AMARYL) 2 12-15 by mouth Luanne ege MG tablet 00:00: 00:00 daily. of 00 :00 Medicin e metformin metformin No 2 BID metformin [place] 500 mg 500 mg 500 mg da tablet Take tablet Take tablet Medical 2 tablets 2 tablets Take 2 Thomas up twice a day twice a day tablets by oral by oral twice a route. route. day by oral route. Vital Signs Vital Name Observation Time Observation Value Comments Source Systolic blood 2021-07-06 20:52:00 97 mm[Hg] [facility] Diastolic blood 2021-07-06 20:52:00 70 mm[Hg] [facility] Medicine Heart rate 2021-07-06 20:52:00 88 /min [facility] Body temperature 2021-07-06 20:52:00 36.33 Daisy [facility] Body height 2021-07-06 20:52:00 175.3 cm [facility] Body weight 2021-07-06 20:52:00 72.031 kg [facility] BMI 2021-07-06 20:52:00 23.45 kg/m2 [facility] HEIGHT 2021-06-20 17:00:00 175.3 cm WEIGHT 2021-06-20 17:00:00 70.308 kg WEIGHT 2021-06-20 07:51:00 71 kg HEIGHT 2021-06-20 17:00:00 175.3 cm WEIGHT 2021-06-20 17:00:00 70.308 kg WEIGHT 2021-06-20 07:51:00 71 kg Systolic blood 2021-06-08 16:32:00 115 mm[Hg] [facility] pressure Medicine Diastolic blood 2021-06-08 16:32:00 73 mm[Hg] [facility] Medicine Heart rate 2021-06-08 16:32:00 107 /min [facility] Body temperature 2021-06-08 16:32:00 36.33 Daisy [facility] Body height 2021-06-08 16:32:00 175.3 cm [facility] weight 2021-06-08 16:32:00 72.576 kg [facility] BMI 2021-06-08 16:32:00 23.63 kg/m2 [facility] ollege [facility] WEIGHT 2021-06-05 09:00:00 74.617 kg WEIGHT 2021-06-02 06:00:00 72 kg HEIGHT 2021-05-31 08:38:00 175.3 cm WEIGHT 2021-05-31 08:38:00 73.846 kg HEIGHT 2021-05-30 09:51:00 177.8 cm WEIGHT 2021-05-30 09:51:00 73.029 kg WEIGHT 2021-06-05 09:00:00 74.617 kg WEIGHT 2021-06-02 06:00:00 72 kg HEIGHT 2021-05-31 08:38:00 175.3 cm WEIGHT 2021-05-31 08:38:00 73.846 kg HEIGHT 2021-05-30 09:51:00 177.8 cm WEIGHT 2021-05-30 09:51:00 73.029 kg Systolic blood 2021-03-02 21:33:00 159 mm[Hg] [facility] pressure Medicine Diastolic blood 2021-03-02 21:33:00 92 mm[Hg] [facility] Medicine Heart rate 2021-03-02 21:33:00 83 /min [facility] Body temperature 2021-03-02 21:33:00 36.83 Daisy [facility] Body weight 2021-03-02 21:33:00 86.183 kg [facility] Systolic blood 2020-12-23 17:00:00 151 mm[Hg] Univer sity of pressure [facility] Diastolic blood 2020-12-23 17:00:00 81 mm[Hg] Unive rsity of pressure [facility] Heart rate 2020-12-23 17:00:00 65 /min [facility] Respiratory rate 2020-12-23 17:00:00 18 /min [facility] saturation in 2020-12-23 17:00:00 97 /min University Arterial blood by [facility] Pulse oximetry Branch Body temperature 2020-12-23 13:31:00 36.61 Daisy [facility] Medical [place] Body weight 2020-12-23 13:31:00 86.183 kg [facility] BP Diastolic 2019-05-05 00:00:00 80 mm[Hg] [facility] Height 2019-05-05 00:00:00 69 [facility]in_i] [facility] BMI (Body Mass 2019-05-05 00:00:00 32.3 kg/m2 [facility] cardiographer Medical Index) Group BP Systolic 2019-05-05 00:00:00 138 mm[Hg] [facility] Body Weight 2019-05-05 00:00:00 218.9 [lb_av] [facility] Procedures Procedure Date / Time Performed Performing Clinician [facility] e CT ABDOMEN PELVIS W 2020-12-23 15:07:47 Harjeet García [facility] CONTRAST [facility] COMP. METABOLIC PANEL 2020-12-23 14:05:00 Harjeet García [facility] ([id number]) [facility] CBC WITH DIFF 2020-12-23 14:05:00 [facility] XR CHEST 1 VW 2020-12-23 14:02:59 [facility] NOTICE OF PRIVACY 2020-12-23 13:28:24 Doctor Unassigned, No [facility] PRACTICES Name [facility] CONSENT/REFUSAL FOR 2020-12-23 13:28:08 [facility] Name Medical [place] TREATMENT Plan of Care Planned Activity Planned Date Details Comments Source Future Scheduled 2021-07-17 Screening for malignant [facility] Test 18:25:35 neoplasm of colon of Medicin e (procedure) [code = 246510528] Future Scheduled 2021-07-17 COVID-19 Vaccine (1) [facility] Test 18:25:35 [code = COVID-19 of Medicine Vaccine (1)] Future Scheduled 2021-07-17 Pneumococcal Combined [facility] Test 18:25:35 (1 of 2 - PPSV23) [code of M edicine = Pneumococcal Combined (1 of 2 - PPSV23)] Future Scheduled 2021-07-17 TETANUS SHOT (ADULT) [facility] Test 18:25:35 [code = TETANUS SHOT of Medi cine (ADULT)] Future Scheduled 2021-07-17 Diabetic foot [facility] Col lege Test 18:25:35 examination of Medicine (regime/therapy) [code = 425517856] Future Scheduled 2021-07-17 ANNUAL DIABETIC [facility] C ollege Test 18:25:35 RETINOPATHY SCREENING of Med icine [code = ANNUAL DIABETIC RETINOPATHY SCREENING] Future Scheduled 2021-07-17 Hepatitis C screening [facility] Test 18:25:35 (procedure) [code = of Medic ine 420489292] Future Scheduled 2021-07-17 Human immunodeficiency [facility] Test 18:25:35 virus screening of Medicine (procedure) [code = 138032293] Future Scheduled 2021-07-17 ZOSTER VACCINE (1 of 2) [facility] Test 18:25:35 [code = ZOSTER VACCINE of Il dicine (1 of 2)] Future Scheduled 2021-07-17 FLU VACCINE > 6 MONTHS B [facility] Test 18:25:35 [code = FLU VACCINE > 6 of edicine MONTHS] Future Scheduled 2021-07-06 CT PET SKULL-BASE 1 Occurrences [facility] Test 17:24:50 MID-THIGH (69153) [code starting of M edicine = 72468] 07/06/2021 until 07/06/2022 Diagnostic Test 2021-07-06 ECHO, COMPLETE [code = Expected: [facility] Pending 00:00:00 42795] 07/06/2021, of Medicine Expires: 01/05/2022 Future Scheduled 2021-06-20 Screening for malignant [facility] Test 22:35:42 neoplasm of colon of Medicin e (procedure) [code = 166814585] Future Scheduled 2021-06-20 COVID-19 Vaccine (1) [facility] Test 22:35:42 [code = COVID-19 of Medicine Vaccine (1)] Future Scheduled 2021-06-20 Pneumococcal Combined [facility] Test 22:35:42 (1 of 2 - PPSV23) [code of M edicine = Pneumococcal Combined (1 of 2 - PPSV23)] Future Scheduled 2021-06-20 TETANUS SHOT (ADULT) [facility] Test 22:35:42 [code = TETANUS SHOT of Medi cine (ADULT)] Future Scheduled 2021-06-20 Diabetic foot [facility] Col lege Test 22:35:42 examination of Medicine (regime/therapy) [code = 576470173] Future Scheduled 2021-06-20 ANNUAL DIABETIC [facility] C ollege Test 22:35:42 RETINOPATHY SCREENING of Med icine [code = ANNUAL DIABETIC RETINOPATHY SCREENING] Future Scheduled 2021-06-20 Hepatitis C screening [facility] Test 22:35:42 (procedure) [code = of Medic ine 163214021] Future Scheduled 2021-06-20 Human immunodeficiency [facility] Test 22:35:42 virus screening of Medicine (procedure) [code = 007371929] Future Scheduled 2021-06-20 ZOSTER VACCINE (1 of 2) [facility] Test 22:35:42 [code = ZOSTER VACCINE of Me dicine (1 of 2)] Future Scheduled 2021-06-20 FLU VACCINE > 6 MONTHS B [facility] Test 22:35:42 [code = FLU VACCINE > 6 of M edicine MONTHS] Future Scheduled 2021-03-08 Screening for malignant [facility] Test 13:18:05 neoplasm of colon of Medicin e (procedure) [code = 385898652] Future Scheduled 2021-03-08 COVID-19 Vaccine (1) [facility] Test 13:18:05 [code = COVID-19 of Medicine Vaccine (1)] Future Scheduled 2021-03-08 TETANUS SHOT (ADULT) [facility] Test 13:18:05 [code = TETANUS SHOT of Medi cine (ADULT)] Future Scheduled 2021-03-08 Hepatitis C screening [facility] Test 13:18:05 (procedure) [code = of Medic ine 771095633] Future Scheduled 2021-03-08 Human immunodeficiency [facility] Test 13:18:05 virus screening of Medicine (procedure) [code = 470566577] Future Scheduled 2021-03-08 ZOSTER VACCINE (1 of 2) [facility] Test 13:18:05 [code = ZOSTER VACCINE of Me dicine (1 of 2)] Future Scheduled 2021-03-08 FLU VACCINE > 6 MONTHS B [facility] Test 13:18:05 [code = FLU VACCINE > 6 of M edicine MONTHS] Encounters Start End Encounter Admission Attending Care Care Encounter Source Date/Time Date/Time Type Type Clinicians Facility Department ID 2021-07-07 Inpatient PADMAJA, SLE Surgery [id number] [facility] 09:35:14 [facility] 2021-09-04 2021-09-04 Outpatient [facility] [id number] SLE 00:00:00 00:00:00 2021-09-04 2021-09-04 Outpatient [facility] [id number] SLE 00:00:00 00:00:00 2021-07-06 2021-07-06 Office Padmaja, [facility] [id number] [facility] 15:45:00 16:56:46 Visit Emily AMBULATOR [id number] College Y 0.2.7.2.686 of [id number] [facility] mansi 810 e 2021-06-20 2021-06-23 Inpatient ER [facility] Emergency [id number] [facility] 07:28:00 20:11:00 SONU 2021-06-20 2021-06-20 Outpatient [facility] [id number] [facility] 00:00:00 23:59:00 Colleg e of Medicin e 2021-06-08 2021-06-08 Office [facility], [facility] [id number] [facility] 10:30:00 15:15:41 Visit Emily AMBULATOR [id number] College Y [id number] of [id number] [facility] mansi 810 e 2021-05-31 2021-06-05 Inpatient [facility], [facility] Surgery [id number] [facility] 07:05:00 20:25:00 [facility] 2021-05-31 2021-05-31 Outpatient [facility] [id number] [facility] 07:05:00 23:59:00 Colleg e of Medicin e 2021-05-30 2021-05-30 Outpatient [facility] [id number] SLE 10:06:51 23:59:00 2021-05-30 2021-05-30 Outpatient IHDE_G MMG MMG [id number] [place] 04:42:00 04:42:00 301 [facility] 2021-03-02 2021-03-08 Office SILVIA BUTLER [id number] [facility] 14:53:08 19:53:03 Visit EMILY AMBULATOR 350.1.13.21 College Y [id number] [id number] [facility] 810 e 2020-12-23 2020-12-23 Emergency Singer [facility] [id number] Univers 08:31:00 12:44:00 Harjeet Thao 350.1.13.10 i ty of [place] 4.2.7.2.686 [facility] [id number] [facility] 084 Branch 2020-12-23 2020-12-23 Emergency X SINGER [facility] ERT [id number] Univers 08:31:00 12:44:00 HARJEET gorman of [facility] 2020-02-17 2020-02-17 Outpatient IHDE_G MMG [facility] [id number] [place] 02:41:00 02:41:00 118 Medical Group 2019-11-26 2019-11-26 Outpatient IHDE_G MMG MM [id number] [place] 12:08:00 12:08:00 827 Medical Group 2019-05-06 2019-05-06 Outpatient IHDE_G MMG MM [id number] [place] 11:15:00 11:15:00 206 Medical Group 2019-05-06 2019-05-06 Outpatient IHDE_G MMG MM [id number] [place] 06:49:00 06:49:00 205 Medical Group 2019-05-05 2019-05-05 Outpatient IHDE_G MMG MM [id number] [place] 05:55:00 05:55:00 204 Medical Group 2019-05-05 2019-05-05 Kartik [facility] [place] - [id number] M [place] 00:00:00 00:00:00 Javier Jimenez MD: Medical Medica [address] [facility] [address], [place] [address] , Ph. [phone] 2019-04-28 2019-04-28 Outpatient PHILLIP_L MMG MMG [id number] [place] 11:31:00 11:31:00 128 [facility] Results Test Description Test Time Test Comments Results Result Comments Source BLOOD CULTURE 2021-06-25 09:00:52 Test Item Value Reference Range Interpretation Comme nts CULTURE (BEAKER) (test code = 1095) No growth in 5 days BLOOD [id number] 09:00:52 Test Item Value Reference Range Interpretation Comments CULTURE (BEAKER) (test No growth in 5 days code = 1095) POCT-GLUCOSE [id number] 21:04:34 Test Item Value Reference Range Interpretation Comments POC-GLUCOSE METER 205 mg/dL 70-110 H : TESTED A T [facility] 6720 (BEAKER) (test code = [facility] [employer] [facility], 153) 32435: Sample Selector/Techni kathia ID = [id number] for Jalen escobar, Robsonanita POCT-GLUCOSE [id number] 16:27:01 Test Item Value Reference Range Interpretation Comments POC-GLUCOSE METER 125 mg/dL 70-110 H : TESTED A T [facility] 6720 (BEAKER) (test code = [facility] [employer] [facility], 1538) 84779: Sample Selector/Techni kathia ID = [id number] for TRACIE VERAS POCT-GLUCOSE [id number] 11:49:23 Test Item Value Reference Range Interpretation Comments POC-GLUCOSE METER 124 mg/dL 70-110 H : TESTED A T [facility] 6720 (BEAKER) (test code = [facility] [employer] [facility], 1538) 89902: Sample Selector/Techni kathia ID = [id number] for Nicole Sauer POCT-GLUCOSE [id number] 06:39:12 Test Item Value Reference Range Interpretation Comments POC-GLUCOSE METER 161 mg/dL 70-110 H : TESTED A T [facility] 6720 (BEAKER) (test code = [facility] [employer] [facility], 1538) 61533: Sample Selector/Techni kathia ID = [id number] for Jalen escobar, Robsonanita POCT-GLUCOSE [id number] 16:58:32 Test Item Value Reference Range Interpretation Comments POC-GLUCOSE METER 152 mg/dL 70-110 H : TESTED A T [facility] 6720 (BEAKER) (test code = [facility], 1538) 50100: Sample Selector/Techni kathia ID = [id number] for Isidra Burns POCT-GLUCOSE [id number] 11:52:29 Test Item Value Reference Range Interpretation Comments POC-GLUCOSE METER 128 mg/dL 70-110 H : TESTED A T [facility] 6720 (BEAKER) (test code = [facility], 1538) 67674: Sample Selector/Techni kathia ID = [id number] for Isidra Burns POCT-GLUCOSE [id number] 08:26:51 Test Item Value Reference Range Interpretation Comments POC-GLUCOSE METER 233 mg/dL 70-110 H : TESTED A T [facility] 6720 (BEAKER) (test code = [facility], [facility]8) 68936: Sample Selector/Techni kathia ID = [id number] for TRACIE VERAS POCT-GLUCOSE [id number] 08:26:01 Test Item Value Reference Range Interpretation Comments POC-GLUCOSE METER 198 mg/dL 70-110 H : TESTED A T [facility] 6720 (BEAKER) (test code = [facility], [facility]8) 25612: Sample Selector/Techni kathia ID = [id number] for Jalen jhnathaliaNasima (CELLAVISION MANUAL DIFF)2021-06-22 07:21:38 Test Item Value Reference Range Interpretation Comments NEUTROPHILS - REL 62 % (CELLAVISION)(BEAKER) (test code = 2816) LYMPHOCYTES - REL 2 % (CELLAVISION)(BEAKER) (test code = 2817) MONOCYTES - REL 15 % (CELLAVISION)(BEAKER) (test code = 2818) METAMYELOCYTES - REL 8 % 0-0 H (CELLAVISION)(BEAKER) (test code = 2821) MYELOCYTES - REL 6 % 0-0 H (CELLAVISION)(BEAKER) (test code = 2822) PROMYELOCYTES - REL 1 % 0-0 H (CELLAVSION)(BEAKER) (test code = 2825) BANDS - REL (CELLAVISION)(BEAKER) 5 % 0-10 (test code = 2826) ATYPICAL LYMPHOCYTES - REL 1 % 0-0 H (CELLAVISION)(BEAKER) (test code = 2829) NEUTROPHILS - ABS 3.10 K/ul 1.78-5.38 (CELLAVISION)(BEAKER) (test code = 2830) LYMPHOCYTES - ABS 0.10 K/ul 1.32-3.57 L (CELLAVISION)(BEAKER) (test code = 2831) MONOCYTES - ABS 0.75 K/uL 0.30-0.82 (CELLAVISION)(BEAKER) (test code = 2832) METAMYELOCYTES - ABS 0.40 K/uL 0.00-0.00 H (CELLAVISION)(BEAKER) (test code = 2836) MYELOCYTES-ABS 0.30 K/uL 0.00-0.00 H (CELLAVISION)(BEAKER) (test code = 2837) PROMYELOCYTES - ABS 0.05 K/uL 0.00-0.00 H (CELLAVISION)(BEAKER) (test code = 2838) BANDS - ABS (CELLAVISION)(BEAKER) 0.25 K/uL 0.00-0.80 (test code = 2840) ATYPICAL LYMPHOCYTES - ABS 0.05 K/uL 0.00-0.00 H (CELLAVISION)(BEAKER) (test code = 2858) TOTAL COUNTED (BEAKER) (test code 100 = 1351) PLT MORPHOLOGY (BEAKER) (test Normal code = 486) TOXIC GRANULATION (BEAKER) (test Present code = 771) POLYCHROMATOPHILLIC RBCS(BEAKER) 2+ moderate (test code = 478) ANISOCYTOSIS (BEAKER) (test code 1+ few = 961) MICROCYTES (BEAKER) (test code = 1+ few 965) ARTIFACT (CELLAVISION)(BEAKER) Present (test code = 3432) PLATELET CONCENTRATION Adequate (CELLAVISION)(BEAKER) (test code = 3438) Sample Selector ID - Marisela Herrera comments: Slide comments:CBC W/PLT COUNT & AUTO [id number] 07:21:37 Test Item Value Reference Range Interpretation Comments WHITE BLOOD CELL COUNT (BEAKER) 5.0 K/ L 3.5-10.5 (test code = 775) RED BLOOD CELL COUNT (BEAKER) 3.50 M/ L 4.63-6.08 L (test code = 761) HEMOGLOBIN (BEAKER) (test code = 9.7 GM/DL 13.7-17.5 L 410) HEMATOCRIT (BEAKER) (test code = 30.6 % 40.1-51.0 L 411) MEAN CORPUSCULAR VOLUME (BEAKER) 87.4 fL 79.0-92.2 (test code = 753) MEAN CORPUSCULAR HEMOGLOBIN 27.7 pg 25.7-32.2 (BEAKER) (test code = 751) MEAN CORPUSCULAR HEMOGLOBIN CONC 31.7 GM/DL 32.3-36.5 L (BEAKER) (test code = 752) RED CELL DISTRIBUTION WIDTH 14.7 % 11.6-14.4 H (BEAKER) (test code = 412) PLATELET COUNT (BEAKER) (test 189 K/CU MM 150-450 code = 756) MEAN PLATELET VOLUME (BEAKER) 9.9 fL 9.4-12.4 (test code = 754) NUCLEATED RED BLOOD CELLS 1 /100 WBC 0-0 H (BEAKER) (test code = 413) BASIC METABOLIC [id number] 05:56:26 Test Item Value Reference Range Interpretation Comments SODIUM (BEAKER) 132 meq/L 136-145 L (test code = 381) POTASSIUM (BEAKER) 4.0 meq/L 3.5-5.1 (test code = 379) CHLORIDE (BEAKER) 96 meq/L 98-107 L (test code = 382) CO2 (BEAKER) (test 26 meq/L 22-29 code = 355) BLOOD UREA NITROGEN 12 mg/dL 7-21 (BEAKER) (test code = 354) CREATININE (BEAKER) 0.61 mg/dL 0.57-1.25 (test code = 358) GLUCOSE RANDOM 121 mg/dL 70-105 H (BEAKER) (test code = 652) CALCIUM (BEAKER) 8.8 mg/dL 8.4-10.2 (test code = 697) EGFR (BEAKER) (test 134 mL/min/1.73 ESTIM ATED GFR IS code = 1092) sq m NOT ACCURATE CREATININE CLEARANCE IN PREDICTING GLOMERULAR FILTRATION RATE . ESTIMATED GFR I S NOT APPLICABLE FOR DIALYSIS PATIEN TS. Sample Selector ID - BRANDI GPOCT-GLUCOSE [id number] 00:18:48 Test Item Value Reference Range Interpretation Comments POC-GLUCOSE METER 154 mg/dL 70-110 H : TESTED A T [facility] 6720 (BEAKER) (test code = [facility], 1538) 32429: Sample Selector/Techni kathia ID = [id number] for Wh Nasima escobar POCT-GLUCOSE [id number] 16:37:01 Test Item Value Reference Range Interpretation Comments POC-GLUCOSE METER 216 mg/dL 70-110 H : TESTED A T [facility] 6720 (BEAKER) (test code = [facility], 1538) 21574: Sample Selector/Techni kathia ID = [id number] for Re yes, Verna POCT-GLUCOSE [id number] 11:50:44 Test Item Value Reference Range Interpretation Comments POC-GLUCOSE METER 235 mg/dL 70-110 H : TESTED A T [facility] 6720 (BEAKER) (test code = [facility], 1538) 51336: Sample Selector/Techni kathia ID = [id number] for Re yes, Verna HEMOGLOBIN [id number] 11:13:36 Test Item Value Reference Range Interpretation Comments HEMOGLOBIN A1C 8.3 % See_Comment H [Automated m essage] ELECTROPHORESIS ([facility]) The system which (test code = 3811) generated this result transmitted ref erence range: <=5.6%. The reference range was not used to int erpret this result as normal/abnormal . "The A1c is measured using a NGSP-certified method. HbA1c value equal to or greater than 6.5% as thediagnosis cutoff for diabetes. An HbA1c value of 5.7- 6.4% indicates increased risk for diabetes (prediabetes)."Sample Selector ID - ADM (CELLAVISION MANUAL DIFF)2021-06-21 09:11:38 Test Item Value Reference Range Interpretation Comments NEUTROPHILS - REL 65 % (CELLAVISION)(BEAKER) (test code = 2816) LYMPHOCYTES - REL 5 % (CELLAVISION)(BEAKER) (test code = 2817) MONOCYTES - REL 26 % (CELLAVISION)(BEAKER) (test code = 2818) BANDS - REL (CELLAVISION)(BEAKER) 1 % 0-10 (test code = 2826) ATYPICAL LYMPHOCYTES - REL 3 % 0-0 H (CELLAVISION)(BEAKER) (test code = 2829) NEUTROPHILS - ABS 2.28 K/ul 1.78-5.38 (CELLAVISION)(BEAKER) (test code = 2830) LYMPHOCYTES - ABS 0.18 K/ul 1.32-3.57 L (CELLAVISION)(BEAKER) (test code = 2831) MONOCYTES - ABS 0.91 K/uL 0.30-0.82 H (CELLAVISION)(BEAKER) (test code = 2832) BANDS - ABS (CELLAVISION)(BEAKER) 0.04 K/uL 0.00-0.80 (test code = 2840) ATYPICAL LYMPHOCYTES - ABS 0.11 K/uL 0.00-0.00 H (CELLAVISION)(BEAKER) (test code = 2858) TOTAL COUNTED (BEAKER) (test code 100 = 1351) MANUAL NRBC PER 100 CELLS (BEAKER) 2 /100 WBC 0-0 H (test code = 1353) WBC MORPHOLOGY (BEAKER) (test code Normal = 487) GIANT PLATELETS (BEAKER) (test Present code = 313) POLYCHROMATOPHILLIC RBCS(BEAKER) 3+ many (test code = 478) ANISOCYTOSIS (BEAKER) (test code = 1+ few 961) MICROCYTES (BEAKER) (test code = 1+ few 965) ARTIFACT (CELLAVISION)(BEAKER) Present (test code = 3432) PLATELET CONCENTRATION Adequate (CELLAVISION)(BEAKER) (test code = 3438) Sample Selector ID - latrice Prieto comments: Slide comments:CBC W/PLT COUNT & AUTO [id number] 09:11:37 Test Item Value Reference Range Interpretation Comments WHITE BLOOD CELL COUNT (BEAKER) 3.5 K/ L 3.5-10.5 (test code = 775) RED BLOOD CELL COUNT (BEAKER) 3.47 M/ L 4.63-6.08 L (test code = 761) HEMOGLOBIN (BEAKER) (test code = 9.4 GM/DL 13.7-17.5 L 410) HEMATOCRIT (BEAKER) (test code = 30.3 % 40.1-51.0 L 411) MEAN CORPUSCULAR VOLUME (BEAKER) 87.3 fL 79.0-92.2 (test code = 753) MEAN CORPUSCULAR HEMOGLOBIN 27.1 pg 25.7-32.2 (BEAKER) (test code = 751) MEAN CORPUSCULAR HEMOGLOBIN CONC 31.0 GM/DL 32.3-36.5 L (BEAKER) (test code = 752) RED CELL DISTRIBUTION WIDTH 14.7 % 11.6-14.4 H (BEAKER) (test code = 412) PLATELET COUNT (BEAKER) (test 170 K/CU MM 150-450 code = 756) MEAN PLATELET VOLUME (BEAKER) 9.8 fL 9.4-12.4 (test code = 754) NUCLEATED RED BLOOD CELLS 1 /100 WBC 0-0 H (BEAKER) (test code = 413) POCT-GLUCOSE [id number] 07:42:52 Test Item Value Reference Range Interpretation Comments POC-GLUCOSE METER 229 mg/dL 70-110 H : TESTED A T [facility] 6720 (BEAKER) (test code = [facility], 153) 41030: Sample Selector/Techni kathia ID = [id number] for Re yes, Verna POCT-GLUCOSE [id number] 06:13:05 Test Item Value Reference Range Interpretation Comments POC-GLUCOSE METER 219 mg/dL 70-110 H : TESTED A T [facility] 6720 (BEAKER) (test code = [facility], 153) 97844: Sample Selector/Techni kathia ID = [id number] for BE LL, GIOVANI POCT-GLUCOSE [id number] 05:58:09 Test Item Value Reference Range Interpretation Comments POC-GLUCOSE METER 222 mg/dL 70-110 H : TESTED A T [facility] 6720 (BEAKER) (test code = [facility], 153) 67100: Sample Selector/Techni kathia ID = [id number] for BE LL, GIOVANI [id number] 05:55:48 Test Item Value Reference Range Interpretation Comments MAGNESIUM (BEAKER) (test code = 2.1 mg/dL 1.6-2.6 627) Sample Selector ID - NARCISO MBASIC METABOLIC [id number] 05:55:47 Test Item Value Reference Range Interpretation Comments SODIUM (BEAKER) 130 meq/L 136-145 L (test code = 381) POTASSIUM (BEAKER) 5.0 meq/L 3.5-5.1 (test code = 379) CHLORIDE (BEAKER) 96 meq/L 98-107 L (test code = 382) CO2 (BEAKER) (test 24 meq/L 22-29 code = 355) BLOOD UREA NITROGEN 16 mg/dL 7-21 (BEAKER) (test code = 354) CREATININE (BEAKER) 0.75 mg/dL 0.57-1.25 (test code = 358) GLUCOSE RANDOM 217 mg/dL 70-105 H (BEAKER) (test code = 652) CALCIUM (BEAKER) 8.8 mg/dL 8.4-10.2 (test code = 697) EGFR (BEAKER) (test 106 mL/min/1.73 ESTIM ATED GFR IS code = 1092) sq m NOT ACCURATE CREATININE CLEARANCE IN PREDICTING GLOMERULAR FILTRATION RATE . ESTIMATED GFR I S NOT APPLICABLE FOR DIALYSIS PATIEN TS. Sample Selector ID - NARCISO MLACTIC ACID, [id number] 14:35:37 Test Item Value Reference Range Interpretation Comments LACTATE BLOOD VENOUS 1.03 mmol/L 0.50-2.20 Specime n slightly (2) (BEAKER) (test hemolyzed code = 1076) Sample Selector ID - NARCISO MURINALYSIS W/ REFLEX URINE [id number] 13:38:17 Test Item Value Reference Range Interpretation Comments COLOR (BEAKER) (test code = 470) Light Yellow CLARITY (BEAKER) (test code = Clear 469) SPECIFIC GRAVITY UA (BEAKER) 1.027 1.001-1.035 (test code = 468) PH UA (BEAKER) (test code = 467) 8.0 5.0-8.0 PROTEIN UA (BEAKER) (test code = Negative Negative 464) GLUCOSE UA (BEAKER) (test code = Negative Negative 365) KETONES UA (BEAKER) (test code = Negative Negative 371) BILIRUBIN UA (BEAKER) (test code Negative Negative = 462) BLOOD UA (BEAKER) (test code = Negative Negative 461) NITRITE UA (BEAKER) (test code = Negative Negative 465) LEUKOCYTE ESTERASE UA (BEAKER) Negative Negative (test code = 466) UROBILINOGEN UA (BEAKER) (test 0.2 mg/dL 0.2-1.0 code = 463) RBC UA (BEAKER) (test code = < /HPF 519) WBC UA (BEAKER) (test code = 0 /HPF 520) BACTERIA (BEAKER) (test code = None Seen 517) CRYSTALS, URINE (BEAKER) (test None Seen code = 1521) SOURCE(BEAKER) (test code = 2795) Sample Selector ID - [auto]Sample Selector ID - OSCAR [id number] 12:41:00Unlisted Reason for Exam - Click Yes and Enter Reason Below->NoIs this for enterography?->NoWill this procedure require oral contrast?->No [facility] 1960 Sex: MFINAL REPORT TECHNIQUE: CT of the abdomen and pelvis WITH intravenous contrast and WITHOUT oral contrast. Dose modulation, iterative reconstruction, and/or weight-based adjustment of the mA/kV was utilized to reduce the radiation dose to as low as reasonably achievable. INDICATION: Abdominal infection suspected. COMPARISON: None. FINDINGS: LOWER THORAX: Calcifiedlymph nodes in the mediastinum are likely due to prior granulomatous disease. A right lower lobe calcified granuloma measures 0.3 cm. Moderate bibasilar fibrosis. HEPATOBILIARY: A few calcified granulomas in the liver measure up to 0.9 cm. No other focal hepatic lesions. Gallbladder is unremarkable. No biliary ductal dilatation.SPLEEN: No splenomegaly. The spleen measures 12.4 cm in length.PANCREAS: No focal masses or ductal dilatation. ADRENALS: No adrenal nodules.KIDNEYS/URETERS: No hydronephrosisor masses. 3 nonobstructing left renal stones are punctate. A simple cyst in the right upper pole measures 1.1 cm. No follow-up imaging is recommended for this finding. PELVIC ORGANS/BLADDER: Some hyperdense material in the posterior bladder has an internal more hyperdense focus and measures up to 3.6cm in length on axial image 78. PERITONEUM/RETROPERITONEUM: Small volume pneumoperitoneum. There is a plaque- like area of thickening along segment III of the liver is best seen on sagittal image 65 which measures 1.7 cm. A nodular area adjacent to the rectum measures 1.2 cm on axial image 80. LYMPH NODES: No lymphadenopathy.VESSELS: Marked atherosclerosis of the infrarenal abdominal aorta. GI TRACT: The partially visualized lower esophagus is thickened. There is irregularity of the most distal esophagus, most likely due to the known esophageal malignancy. Moderate diverticulosis of the sigmoid colon. The appendix is normal. A jejunostomy catheter enters the left abdomen has its tip in the jejunum. There is a small amount of gas and fluid along the tract which is peripherally enhancing and measures 1.9 x 3.1 x 1.5 cm. BONES AND SOFT TISSUES: Moderate degenerative disc changes at T12-L1. IMPRESSION: 1.A peripherally enhancing fluid collection along the jejunostomy catheter measures 1.9 x 3.1 x 1.5 cm. This could be inflammation due to reflux of fluid along the tract or an abscess. 2.Trace upper abdominal pneumoperitoneum without a definite underlying cause identified. Specifically, there is no bowel inflammation in the peritoneum to suggest a perforated viscus. This amount of pneumoperitoneum is more than usually expected 20 days after surgery. 3.The plaque-like area of thickening along segment III of the liver and the nodular area adjacent to the rectum are concerning for metastatic implants. 4.The hyperdense material in the dependent portion of the bladder could be debris and a stone. However, a mass is also possible. Consider further evaluation with either a CT urogram or cystoscopy. 5.Moderate bibasilar lung fibrosis. The findings were discussed with Dr. Girard on 06/20/2021 at 12:38 PM. Signed: Missael Anand Verified Date/Time: 06/20/2021 12:41:58 Reading Location: [address] Body Reading Room (CELLAVISION MANUAL DIFF)2021-06-20 09:55:26 Test Item Value Reference Range Interpretation Comments NEUTROPHILS - REL 55 % (CELLAVISION)(BEAKER) (test code = 2816) LYMPHOCYTES - REL 6 % (CELLAVISION)(BEAKER) (test code = 2817) MONOCYTES - REL 25 % (CELLAVISION)(BEAKER) (test code = 2818) METAMYELOCYTES - REL 1 % 0-0 H (CELLAVISION)(BEAKER) (test code = 2821) MYELOCYTES - REL 2 % 0-0 H (CELLAVISION)(BEAKER) (test code = 2822) PROMYELOCYTES - REL 3 % 0-0 H (CELLAVSION)(BEAKER) (test code = 2825) BANDS - REL (CELLAVISION)(BEAKER) 5 % 0-10 (test code = 2826) ATYPICAL LYMPHOCYTES - REL 3 % 0-0 H (CELLAVISION)(BEAKER) (test code = 2829) NEUTROPHILS - ABS 1.98 K/ul 1.78-5.38 (CELLAVISION)(BEAKER) (test code = 2830) LYMPHOCYTES - ABS 0.22 K/ul 1.32-3.57 L (CELLAVISION)(BEAKER) (test code = 2831) MONOCYTES - ABS 0.90 K/uL 0.30-0.82 H (CELLAVISION)(BEAKER) (test code = 2832) METAMYELOCYTES - ABS 0.04 K/uL 0.00-0.00 H (CELLAVISION)(BEAKER) (test code = 2836) MYELOCYTES-ABS 0.07 K/uL 0.00-0.00 H (CELLAVISION)(BEAKER) (test code = 2837) PROMYELOCYTES - ABS 0.11 K/uL 0.00-0.00 H (CELLAVISION)(BEAKER) (test code = 2838) BANDS - ABS (CELLAVISION)(BEAKER) 0.18 K/uL 0.00-0.80 (test code = 2840) ATYPICAL LYMPHOCYTES - ABS 0.11 K/uL 0.00-0.00 H (CELLAVISION)(BEAKER) (test code = 2858) TOTAL COUNTED (BEAKER) (test code 100 = 1351) MANUAL NRBC PER 100 CELLS (BEAKER) 2 /100 WBC 0-0 H (test code = 1353) WBC MORPHOLOGY (BEAKER) (test code Normal = 487) GIANT PLATELETS (BEAKER) (test Present code = 313) POLYCHROMATOPHILLIC RBCS(BEAKER) 1+ few (test code = 478) ANISOCYTOSIS (BEAKER) (test code = 1+ few 961) MICROCYTES (BEAKER) (test code = 1+ few 965) ARTIFACT (CELLAVISION)(BEAKER) Present (test code = 3432) PLATELET CONCENTRATION Adequate (CELLAVISION)(BEAKER) (test code = 3438) Sample Selector ID - latrice Prieto comments: Slide comments:CBC W/PLT COUNT & AUTO [id number] 09:55:21 Test Item Value Reference Range Interpretation Comments WHITE BLOOD CELL COUNT (BEAKER) 3.6 K/ L 3.5-10.5 (test code = 775) RED BLOOD CELL COUNT (BEAKER) 4.15 M/ L 4.63-6.08 L (test code = 761) HEMOGLOBIN (BEAKER) (test code = 11.6 GM/DL 13.7-17.5 L 410) HEMATOCRIT (BEAKER) (test code = 35.5 % 40.1-51.0 L 411) MEAN CORPUSCULAR VOLUME (BEAKER) 85.5 fL 79.0-92.2 (test code = 753) MEAN CORPUSCULAR HEMOGLOBIN 28.0 pg 25.7-32.2 (BEAKER) (test code = 751) MEAN CORPUSCULAR HEMOGLOBIN CONC 32.7 GM/DL 32.3-36.5 (BEAKER) (test code = 752) RED CELL DISTRIBUTION WIDTH 14.7 % 11.6-14.4 H (BEAKER) (test code = 412) PLATELET COUNT (BEAKER) (test 188 K/CU MM 150-450 code = 756) MEAN PLATELET VOLUME (BEAKER) 10.6 fL 9.4-12.4 (test code = 754) NUCLEATED RED BLOOD CELLS 1 /100 WBC 0-0 H (BEAKER) (test code = 413) RAD, CHEST, 1 VIEW, NON [id number] 09:03:00Reason for exam:->Leaking G tube, hypotensionShould this be performed at the bedside?->Yes [facility] 1960 Sex: MFINAL REPORT CLINICAL HISTORY: Leaking G tube, hypotension TECHNIQUE: 1 view of the chest. COMPARISON: 05/31/2021 IMPRESSION: The right central line is unchanged. Mildly prominent lung markings are unchanged. There is no new lobar consolidation. There is blunting ofthe right costophrenic angle. There is no significant cardiomegaly. Signed: Chelsie Sanders MDReport Verified Date/Time: 06/20/2021 09:03:35 Reading Location: [facility] Radiology Reading Room -COV2/RT-PCR ([facility])2021-06-20 08:50:02 Test Item Value Reference Range Interpretation Comments SARS-COV2/RT-PCR Negative Negative The SARS-Co V-2 target (test code = nucleic acids a re not [id number]) detected in thi s specimen. Negative result s do not preclude SARS-C oV-2 infection and s hould not be used as the cherelle e basis for patient managem ent decisions. Nega tive results must be combine d with clinical observ ations, patient history , and epidemiological information. A false negativ e result may occur if a spec imen is improperly luanne ected, transported or handled. This SARS CoV-2 test is a rapid, real-benoit e RT-PCR test intended for th e qualitative detection of nu cleic acid from SARS-CoV-2 in a nasopharyngeal swab specimen collected from individuals suspected of CO VID-19 by their healthcar e provider. This test has been authorized by FDA under an EUA for use by authorized laboratories. This test is only authorized for the duration of the declaration that circumstances exist justifying the authorization of emergency use of in vitro diagnostic tests for detection and/or diagnosis of COVID-19 under Section 564(b)(1) of the Federal Food, Drug and Cosmetic Act, 21 U.S.C. 360bbb- 3(b)(1), unless the authorization is terminated or revoked sooner. Fact Sheet for Healthcare Providers: https://www.FireID/Documents/Xpert%20Xpress%20SARS%20CoV-2/Fact%20Sheets/302-3802%20SARS-COV -2%20HEALTHCARE%20PROVIDERS%20FACT%20SHEET.pdf Fact Sheet for Healthcare Patients: https://www.Yabbedoo/Documents/Xpert %20Xpress%20SARS%20CoV-2/Fact%20Sheets/302-3801%86JDTS-FKL-8%20PATIENT%20FACT%20 SHEET.pdfRAD, ABDOMEN/KUB, 1 VIEW [id number] 08:27:00Reason for exam:- >Leaking G tube, hypotensionShould this be performed at the bedside?->Yes [facility] 1960 Sex: MFINAL REPORT CLINICAL HISTORY: Leaking G tube, hypotension TECHNIQUE: Supine abdomen COMPARISON: None IMPRESSION: A left-sided gastrostomy tube is present. The bowel gas pattern is nonspecific with moderate stool in the right hemicolon. Free air and air-fluid levels are not definitively seen, but also cannot be excluded on the supine view. Signed: Chelsie Sanders MDReport Verified Date/Time: 06/20/2021 08:27:07 Reading Location: [facility] Radiology Reading Room COMPREHENSIVE METABOLIC [id number] 08:18:28 Test Item Value Reference Range Interpretation Comments TOTAL PROTEIN 7.8 gm/dL 6.0-8.3 (BEAKER) (test code = 770) ALBUMIN (BEAKER) 3.5 g/dL 3.5-5.0 (test code = 1145) ALKALINE PHOSPHATASE 177 U/L 40-150 H (BEAKER) (test code = 346) BILIRUBIN TOTAL 0.3 mg/dL 0.2-1.2 (BEAKER) (test code = 377) SODIUM (BEAKER) (test 129 meq/L 136-145 L code = 381) POTASSIUM (BEAKER) 4.8 meq/L 3.5-5.1 (test code = 379) CHLORIDE (BEAKER) 89 meq/L 98-107 L (test code = 382) CO2 (BEAKER) (test 26 meq/L 22-29 code = 355) BLOOD UREA NITROGEN 20 mg/dL 7-21 (BEAKER) (test code = 354) CREATININE (BEAKER) 0.94 mg/dL 0.57-1.25 (test code = 358) GLUCOSE RANDOM 236 mg/dL 70-105 H (BEAKER) (test code = 652) CALCIUM (BEAKER) 10.2 mg/dL 8.4-10.2 (test code = 697) AST (SGOT) (BEAKER) 20 U/L 5-34 (test code = 353) ALT (SGPT) (BEAKER) 20 U/L 6-55 (test code = 347) EGFR (BEAKER) (test 81 mL/min/1.73 ESTIMA RHIANNON GFR IS code = 1092) sq m NOT ACCURATE CREATININE CLEARANCE IN PREDICTING GLOMERULAR FILTRATION RATE . ESTIMATED GFR I S NOT APPLICABLE FOR DIALYSIS PATIEN TS. Sample Selector ID - NARCISO [id number] 08:17:06 Test Item Value Reference Range Interpretation Comments PARTIAL THROMBOPLASTIN TIME 28.6 seconds 22.5-36.0 (BEAKER) (test code = 760) PROTHROMBIN TIME/[id number] 08:16:29 Test Item Value Reference Range Interpretation Comments PROTIME (BEAKER) 12.7 seconds 11.9-14.2 (test code = 759) INR (BEAKER) (test 0.97 See_Comment [Automat ed message] code = 370) The system [employer]osing Views generated this result transmitted ref erence range: <=5.90. The reference range was not used to int erpret this result as normal/abnormal . RECOMMENDED COUMADIN/WARFARIN INR THERAPY RANGESSTANDARD DOSE: 2.0 - 3.0 Includes: PROPHYLAXIS forvenous thrombosis, systemic embolization; TREATMENT for venous thrombosis and/or pulmonary embolus.HIGH RISK: Target INR is 2.5-3.5 for patients with mechanical heart valves.LACTIC ACID, [id number] 08:08:24 Test Item Value Reference Range Interpretation Comments LACTATE BLOOD VENOUS (2) (BEAKER) 3.03 mmol/L 0.50-2.20 H (test code = 2872) Sample Selector ID - NARCISO [id number] 12:12:41Medical Cytology Report Case: [id number] Authorizing Provider: Emily Butler MD Collected: 05/31/2021 02:08 PM Ordering Location: [facility] Received: 05/31/2021 03:20 PM PERIOPERATIVE SERVICES Pathologist: Bettina Larsen MD Specimen: Peritoneal Washings PERITONEAL WASHING (CYTOSPINS AND CELL BLOCK): - RARE ATYPICAL CELLS, FAVOR REACTIVE MESOTHELIAL CELLS (SEE COMMENT) Signing Pathologist Direct Phone Line: [phone] signed by Bettina Larsen MD on 06/06/2021 at 12:12 PMThe specimen is composed of benign-appearing mesothelial cells admixed with acute and chronic inflammation. There are rare clusters of atypical cells with increased nuclear to cytoplasmic ratios and overlapping nuclei. MOC31 was performed on the specimen, and no staining isidentified. The control is appropriate. These findings are interpreted as rare atypical cells, favor reactive mesothelial cells. Please see surgical pathology case [id number], [id number], [id number] with esophageal adenocarcinoma in 12/2020, status post laparoscopy.PERITONEAL WASHINGReceived 2250 ml bloody fluid; prepared 4 cytospins and cell block(A2) - the cell block was fixed in formalin at 3:53pm on 05/31/2021; prepared cell block(A3) the cell block was fixed in formalin at 4:50pm on 06/01/2021.Performed. SatisfactoryThe interpretation of this case included the use of immunohistochemistry or special stains.Control Slides Examined: In-house known positive controls were evaluated along with the test tissue. These control slides run alongside of the patients sample show appropriate staining. Internal positive and negative controls when available are evaluated Immunohistochemistry technical testing was performed at [facility], Pathology Laboratory where it was developed and its performance characteristics were determined. It has not been cleared or approved by the U.S. Food and Drug Administration. The FDA has determined that such clearance or approval is not necessary. The test is used for clinical purposes. It should not be regarded as investigational or for research. This laboratory is certified under the Clinical Laboratory Improvement Amendments of 1988 (CLIA-88) as qualified to perform high complexity clinical laboratory testing.[facility], Department of Pathology, [address] [place] [address], [facility], [address] [place] [address], [facility], [facility] of [facility], [address] [place] [address], [id number] 17:21:44 Test Item Value Reference Range Interpretation Comments POC-GLUCOSE METER 211 mg/dL 70-110 H : [facility] [employer] [facility] ([employer]) (test code = [facility], 1538) [id number]: Sample Selector/Techni kathia ID = [id number] for Roxi Rojas POCT-GLUCOSE [id number] 12:14:50 Test Item Value Reference Range Interpretation Comments POC-GLUCOSE METER 165 mg/dL 70-110 H : TESTED A T [facility] 6720 ([employer]) (test code = [facility], 1538) 97288: Sample Selector/Techni kathia ID = [id number] for Sa Roxi lew POCT-GLUCOSE [id number] 06:11:39 Test Item Value Reference Range Interpretation Comments POC-GLUCOSE METER 208 mg/dL 70-110 H : TESTED A T [facility] 67[facility] (BEAKER) (test code = [facility], [facility]8) [address]: Sample Selector/Techni kathia ID = [id number] for MO SE, DANISH POCT-GLUCOSE [id number] 23:13:10 Test Item Value Reference Range Interpretation Comments POC-GLUCOSE METER 194 mg/dL 70-110 H : TESTED A T [facility] 6720 (BEAKER) (test code = [facility], [facility]8) 74135: Sample Selector/Techni kathia ID = [id number] for MO SE, DANISH POCT-GLUCOSE [id number] 17:31:42 Test Item Value Reference Range Interpretation Comments POC-GLUCOSE METER 214 mg/dL 70-110 H : TESTED A T [facility] 6720 (BEAKER) (test code = [facility], [facility]8) 58368: Sample Selector/Techni kathia ID = [id number] for Do minguez, Josef POCT-GLUCOSE [id number] 11:58:17 Test Item Value Reference Range Interpretation Comments POC-GLUCOSE METER 152 mg/dL 70-110 H : TESTED A T [facility] 6720 (BEAKER) (test code = [facility], [facility]8) 76059: Sample Selector/Techni kathia ID = [id number] for Do minguez, Josef POCT-GLUCOSE [id number] 05:39:18 Test Item Value Reference Range Interpretation Comments POC-GLUCOSE METER 183 mg/dL 70-110 H : TESTED A T [facility] 6720 (BEAKER) (test code = [facility], [facility]8) 91580: Sample Selector/Techni kathia ID = [id number] for MO SE, DANISH POCT-GLUCOSE [id number] 23:13:40 Test Item Value Reference Range Interpretation Comments POC-GLUCOSE METER 187 mg/dL 70-110 H : TESTED A T [facility] 6720 (BEAKER) (test code = [facility], 1538) 85872: Sample Selector/Techni kathia ID = [id number] for DANISH BROWN SE POCT-GLUCOSE [id number] 16:42:53 Test Item Value Reference Range Interpretation Comments POC-GLUCOSE METER 187 mg/dL 70-110 H : TESTED A T [facility] 6720 (BEAKER) (test code = [facility], 1538) 78537: Sample Selector/Techni kathia ID = [id number] for KRIS MACIAS POCT-GLUCOSE [id number] 11:29:42 Test Item Value Reference Range Interpretation Comments POC-GLUCOSE METER 167 mg/dL 70-110 H : TESTED A T [facility] 6720 (BEAKER) (test code = [facility], 1538) 32686: Sample Selector/Techni kathia ID = [id number] for KRIS MACIAS [id number] 05:40:10 Test Item Value Reference Range Interpretation Comments MAGNESIUM (BEAKER) (test code = 2.1 mg/dL 1.6-2.6 627) Sample Selector ID - NARCISO MBASIC METABOLIC [id number] 05:40:09 Test Item Value Reference Range Interpretation Comments SODIUM (BEAKER) 131 meq/L 136-145 L (test code = 381) POTASSIUM (BEAKER) 4.1 meq/L 3.5-5.1 (test code = 379) CHLORIDE (BEAKER) 98 meq/L 98-107 (test code = 382) CO2 (BEAKER) (test 25 meq/L 22-29 code = 355) BLOOD UREA NITROGEN 10 mg/dL 7-21 (BEAKER) (test code = 354) CREATININE (BEAKER) 0.66 mg/dL 0.57-1.25 (test code = 358) GLUCOSE RANDOM 182 mg/dL 70-105 H (BEAKER) (test code = 652) CALCIUM (BEAKER) 8.6 mg/dL 8.4-10.2 (test code = 697) EGFR (BEAKER) (test 122 mL/min/1.73 ESTIM ATED GFR IS code = 1092) sq m NOT ACCURATE CREATININE CLEARANCE IN PREDICTING GLOMERULAR FILTRATION RATE . ESTIMATED GFR I S NOT APPLICABLE FOR DIALYSIS PATIEN TS. Sample Selector ID - NARCISO MPOCT-GLUCOSE [id number] 16:02:16 Test Item Value Reference Range Interpretation Comments POC-GLUCOSE METER 195 mg/dL 70-110 H : TESTED A T [facility] 6720 (GOVIND) (test code = [facility] [place], 1538) 13729: Sample Selector/Techni kathia ID = [id number] for KRIS MACIAS TISSUE [id number] 14:22:20Surgical Pathology Report Case: [id number] Authorizing Provider: Emily Butler MD Collected: 05/31/2021 12:30 PM Ordering Location: [facility] Received: 05/31/2021 12:38 PM PERIOPERATIVE SERVICES Pathologist: Luz Vazquez MD Specimens: A) - Other, LIVER NODULE B) -Other, LIVER NODULE C) - Other, LIVER NODULE #2 A. LIVER, NODULE, BIOPSY: - CALCIFIED FIBROTIC NODULE - FRAGMENT OF LIVER PARENCHYMA WITH MILD STEATOSIS.B. LIVER,NODULE, EXCISIONAL BIOPSY: - CALCIFIED FIBROTIC NODULE - FRAGMENT OF LIVER PARENCHYMA WITHMILD STEATOSIS.C. LIVER NODULE #2, BIOPSY: - BILE DUCT HEMARTOMA (1 MM). - FRAGMENT OF LIVER PARENCHYMA WITH MINIMAL STEATOSIS. Signing Pathologist Direct Phone Line: [phone] signed by Luz Vazquez MD on 06/02/2021 at 2:22 PMThe liver parenchyma in parts A, B and C show mild steatosis (<5%) with no ballooning or inflammation.84484 x3, 82223, 66013Petkdtrxwt carcinomaA. Nodule, liverB. Other, liver noduleC. Other, liver nodule #2A. Received fresh for intraoperative consultation labeled patient's name, accession number and "other" and consists of 2 pieces of fischer-pink soft tissue measuring 0.5 x 0.3 x 0.2 cm and 0.5 x 0.4 x 0.2 cm. No normal liver parenchyma is i dentified. The specimen is entirely frozen as FSA 1.B. Received in formalin labeled with the patient's name, medical record number and "other" and consists of a 1.5 x 0.5 x 0.3 cm white to pink and focally calcified soft tissue. The specimen is bisected and submitted entirely in cassette B1, following decalcification.C. Received in formalin labeled with the patient's name, medical record number and"other" and consists of a 0.6 x 0.3 x 0.2 cm piece of red to fischer soft tissue. The specimen is submitted in toto in C1.KHHLiver nodule biopsy:-Calcified fibrotic lesion-No tumor seenThese findings were reported to Dr. Butler at 12:55 PM on May 31, 2021.Performed.[facility], Department of Pathology, [address] [place] [address], [facility], [facility], [address] [place] [address], [facility], [facility], [address] [place] [address], VMOQ-GLUCOSE [id number] 11:36:43 Test Item Value Reference Range Interpretation Comments POC-GLUCOSE METER 167 mg/dL 70-110 H : TESTED A T [facility] 6720 (BEAKER) (test code = [facility], 1538) 50335: Sample Selector/Techni kathia ID = [id number] for DACIA DUKE KRIS POCT-GLUCOSE [id number] 06:40:48 Test Item Value Reference Range Interpretation Comments POC-GLUCOSE METER 165 mg/dL 70-110 H : TESTED A T [facility] 6720 (BEAKER) (test code = [facility], 1538) 85789: Sample Selector/Techni kathia ID = [id number] for JES MARTINEZ BASIC METABOLIC [id number] 05:34:54 Test Item Value Reference Range Interpretation Comments SODIUM (BEAKER) 132 meq/L 136-145 L (test code = 381) POTASSIUM (BEAKER) 4.1 meq/L 3.5-5.1 (test code = 379) CHLORIDE (BEAKER) 99 meq/L 98-107 (test code = 382) CO2 (BEAKER) (test 26 meq/L 22-29 code = 355) BLOOD UREA NITROGEN 7 mg/dL 7-21 (BEAKER) (test code = 354) CREATININE (BEAKER) 0.61 mg/dL 0.57-1.25 (test code = 358) GLUCOSE RANDOM 156 mg/dL 70-105 H (BEAKER) (test code = 652) CALCIUM (BEAKER) 8.7 mg/dL 8.4-10.2 (test code = 697) EGFR (BEAKER) (test 134 mL/min/1.73 ESTIM ATED GFR IS code = 1092) sq m NOT ACCURATE CREATININE CLEARANCE IN PREDICTING GLOMERULAR FILTRATION RATE . ESTIMATED GFR I S NOT APPLICABLE FOR DIALYSIS PATIEN TS. Sample Selector ID - DOMONIQUE [id number] 05:34:54 Test Item Value Reference Range Interpretation Comments MAGNESIUM (BEAKER) (test code = 1.9 mg/dL 1.6-2.6 627) Sample Selector ID - DOMONIQUE WPOCT-GLUCOSE [id number] 18:13:15 Test Item Value Reference Range Interpretation Comments POC-GLUCOSE METER 154 mg/dL 70-110 H : TESTED A T [facility] 6720 (BEAKER) (test code = [facility], 1538) 69617: Sample Selector/Techni kathia ID = [id number] for Gu illory (pca2), Rober POCT-GLUCOSE [id number] 17:10:06 Test Item Value Reference Range Interpretation Comments POC-GLUCOSE METER 157 mg/dL 70-110 H : TESTED A T [facility] 6720 (BEAKER) (test code = [facility], 1538) 66038: Sample Selector/Techni kathia ID = [id number] for Al conedo (pca2), Елена POCT-GLUCOSE [id number] 12:02:15 Test Item Value Reference Range Interpretation Comments POC-GLUCOSE METER 168 mg/dL 70-110 H : TESTED A T [facility] 6720 (BEAKER) (test code = [facility], 1538) 14559: Sample Selector/Techni kathia ID = [id number] for Al conedo (pca2), Елена POCT-GLUCOSE [id number] 07:26:01 Test Item Value Reference Range Interpretation Comments POC-GLUCOSE METER 120 mg/dL 70-110 H : TESTED A T [facility] 6720 (BEAKER) (test code = [facility], 1538) 63260: Sample Selector/Techni kathia ID = [id number] for Gu illory (pca2), Rober [id number] 04:59:43 Test Item Value Reference Range Interpretation Comments MAGNESIUM (BEAKER) 2.0 mg/dL 1.6-2.6 Specimen slightly (test code = 627) hemolyzed Sample Selector ID - BRANDI [id number] 04:59:43 Test Item Value Reference Range Interpretation Comments PHOSPHORUS (BEAKER) 3.2 mg/dL 2.3-4.7 Specimen slightly (test code = 604) hemolyzed Sample Selector ID - BRANDI GBASIC METABOLIC [id number] 04:59:43 Test Item Value Reference Range Interpretation Comments SODIUM (BEAKER) 133 meq/L 136-145 L (test code = 381) POTASSIUM (BEAKER) 4.4 meq/L 3.5-5.1 Specimen slightly (test code = 379) hemolyzed CHLORIDE (BEAKER) 105 meq/L 98-107 (test code = 382) CO2 (BEAKER) (test 22 meq/L 22-29 code = 355) BLOOD UREA NITROGEN 8 mg/dL 7-21 (BEAKER) (test code = 354) CREATININE (BEAKER) 0.66 mg/dL 0.57-1.25 Specimen slightly (test code = 358) hemolyzed GLUCOSE RANDOM 137 mg/dL 70-105 H (BEAKER) (test code = 652) CALCIUM (BEAKER) 8.7 mg/dL 8.4-10.2 (test code = 697) EGFR (BEAKER) (test 122 mL/min/1.73 ESTIM ATED GFR IS code = 1092) sq m NOT ACCURATE CREATININE CLEARANCE IN PREDICTING GLOMERULAR FILTRATION RATE . ESTIMATED GFR I S NOT APPLICABLE FOR DIALYSIS PATIEN TS. Sample Selector ID - BRANDI GCBC W/PLT COUNT & AUTO [id number] 04:35:29 Test Item Value Reference Range Interpretation Comments WHITE BLOOD CELL COUNT (BEAKER) 3.5 K/ L 3.5-10.5 (test code = 775) RED BLOOD CELL COUNT (BEAKER) 3.45 M/ L 4.63-6.08 L (test code = 761) HEMOGLOBIN (BEAKER) (test code = 9.7 GM/DL 13.7-17.5 L 410) HEMATOCRIT (BEAKER) (test code = 30.9 % 40.1-51.0 L 411) MEAN CORPUSCULAR VOLUME (BEAKER) 89.6 fL 79.0-92.2 (test code = 753) MEAN CORPUSCULAR HEMOGLOBIN 28.1 pg 25.7-32.2 (BEAKER) (test code = 751) MEAN CORPUSCULAR HEMOGLOBIN CONC 31.4 GM/DL 32.3-36.5 L (BEAKER) (test code = 752) RED CELL DISTRIBUTION WIDTH 13.3 % 11.6-14.4 (BEAKER) (test code = 412) PLATELET COUNT (BEAKER) (test 105 K/CU MM 150-450 L code = 756) MEAN PLATELET VOLUME (BEAKER) 9.6 fL 9.4-12.4 (test code = 754) NUCLEATED RED BLOOD CELLS 0 /100 WBC 0-0 (BEAKER) (test code = 413) NEUTROPHILS RELATIVE PERCENT 83 % (BEAKER) (test code = 429) LYMPHOCYTES RELATIVE PERCENT 5 % (BEAKER) (test code = 430) MONOCYTES RELATIVE PERCENT 11 % (BEAKER) (test code = 431) EOSINOPHILS RELATIVE PERCENT 1 % (BEAKER) (test code = 432) BASOPHILS RELATIVE PERCENT 0 % (BEAKER) (test code = 437) NEUTROPHILS ABSOLUTE COUNT 2.92 K/ L 1.78-5.38 (BEAKER) (test code = 670) LYMPHOCYTES ABSOLUTE COUNT 0.16 K/ L 1.32-3.57 L (BEAKER) (test code = 414) MONOCYTES ABSOLUTE COUNT (BEAKER) 0.37 K/ L 0.30-0.82 (test code = 415) EOSINOPHILS ABSOLUTE COUNT 0.04 K/ L 0.04-0.54 (BEAKER) (test code = 416) BASOPHILS ABSOLUTE COUNT (BEAKER) 0.01 K/ L 0.01-0.08 (test code = 417) IMMATURE GRANULOCYTES-RELATIVE 0 % 0-1 PERCENT (BEAKER) (test code = 2801) POCT-GLUCOSE [id number] 23:55:14 Test Item Value Reference Range Interpretation Comments POC-GLUCOSE METER 145 mg/dL 70-110 H : TESTED A T [facility] 6720 (BEAKER) (test code = [facility] [place], 1538) 990[address]: Sample Selector/Techni kathia ID = [id number] for AG U, MILLIGAN POCT-GLUCOSE [id number] 18:08:21 Test Item Value Reference Range Interpretation Comments POC-GLUCOSE METER 157 mg/dL 70-110 H : TESTED A T [facility] 6720 (BEAKER) (test code = [facility] [place] [place], 1538) 55857: Sample Selector/Techni kathia ID = [id number] for FELIX PAT CYTOLOGY [id number] 17:00:46 Test Item Value Reference Range Interpretation Comments CYTOLOGY RESULT POINTER See Separate Report (GOVIND) (test code = 2629) POCT-GLUCOSE [id number] 15:14:03 Test Item Value Reference Range Interpretation Comments POC-GLUCOSE METER 119 mg/dL 70-110 H : TESTED A T [facility] 6720 (BEAKER) (test code = [facility] [place], 1538) 96160: Sample Selector/Techni kathia ID = [id number] for BASHIR MINHNELIDAJACLYN, CHEST, 1 VIEW, NON [id number] 09:30:00Reason for exam:->pre opShould this be performed at the bedside?->Yes [facility] 1960 Sex: MFINAL REPORT TECHNIQUE: Frontal view of the chest. INDICATION: pre op COMPARISON: None. FINDINGS: LINES/TUBES: Right IJ central venous catheter tip terminates overthe superior vena cava. LUNGS: Coarse reticular opacities and mild bronchiectasis lung bases suggesting pulmonary fibrosis. No consolidation or pulmonary edema. PLEURA: No pneumothorax or significant pleural effusion. HEART AND MEDIASTINUM: The cardiomediastinal silhouette is within normal limits. There are calcified right hilar lymph nodes SOFT TISSUES AND BONES: Unremarkable. IMPRESSION:Mild bibasilar pulmonary fibrosis.. Otherwise no acute disease. Signed: Dre Gastelum MDReport Verified Date/Time: 05/31/2021 09:30:57 COMPREHENSIVE METABOLIC [id number] 09:11:33 Test Item Value Reference Range Interpretation Comments TOTAL PROTEIN 7.2 gm/dL 6.0-8.3 Specimen sligh tly (BEAKER) (test code = hemoly zed 770) ALBUMIN (BEAKER) 3.3 g/dL 3.5-5.0 L Specimen sl ightly (test code = 1145) hemolyzed ALKALINE PHOSPHATASE 127 U/L 40-150 (BEAKER) (test code = 346) BILIRUBIN TOTAL 0.2 mg/dL 0.2-1.2 Specimen sli ghtly (BEAKER) (test code = hemoly zed 377) SODIUM (BEAKER) (test 135 meq/L 136-145 L code = 381) POTASSIUM (BEAKER) 3.8 meq/L 3.5-5.1 Specimen slightly (test code = 379) hemolyzed CHLORIDE (BEAKER) 102 meq/L 98-107 (test code = 382) CO2 (BEAKER) (test 27 meq/L 22-29 code = 355) BLOOD UREA NITROGEN 12 mg/dL 7-21 (BEAKER) (test code = 354) CREATININE (BEAKER) 0.77 mg/dL 0.57-1.25 Specimen slightly (test code = 358) hemolyzed GLUCOSE RANDOM 161 mg/dL 70-105 H (BEAKER) (test code = 652) CALCIUM (BEAKER) 9.3 mg/dL 8.4-10.2 (test code = 697) AST (SGOT) (BEAKER) 17 U/L 5-34 Specimen slightly (test code = 353) hemolyzed ALT (SGPT) (BEAKER) 13 U/L 6-55 Specimen slightly (test code = 347) hemolyzed EGFR (BEAKER) (test 102 ESTIMATE D GFR IS code = 1092) mL/min/1.73 sq NOT ACCURA TE m CREATININE CLEARANCE IN PREDICTING GLOMERULAR FILTRATION RATE . ESTIMATED GFR I S NOT APPLICABLE FOR DIALYSIS PATIEN TS. Sample Selector ID - NARCISO [id number] 08:55:50 Test Item Value Reference Range Interpretation Comments PROTIME (BEAKER) (test 14.4 seconds 11.9-14.2 H code = 759) INR (BEAKER) (test 1.14 See_Comment [Automat ed code = 370) message] The sy stem which generated this result transmitted reference range : <=5.90. The reference range was not used to interpret this result as normal/abnormal . PARTIAL THROMBOPLASTIN 32.7 seconds 22.5-36.0 TIME (BEAKER) (test code = 760) RECOMMENDED COUMADIN/WARFARIN INR THERAPY RANGESSTANDARD DOSE: 2.0 - 3.0 Includes: PROPHYLAXIS forvenous thrombosis, systemic embolization; TREATMENT for venous thrombosis and/or pulmonary embolus.HIGH RISK: Target INR is 2.5-3.5 for patients with mechanical heart valves.CBC W/PLT COUNT & AUTO DIFFERENTIAL 2021-05-31 08:48:24 Test Item Value Reference Range Interpretation Comments WHITE BLOOD CELL COUNT (BEAKER) 4.2 K/ L 3.5-10.5 (test code = 775) RED BLOOD CELL COUNT (BEAKER) 3.94 M/ L 4.63-6.08 L (test code = 761) HEMOGLOBIN (BEAKER) (test code = 11.3 GM/DL 13.7-17.5 L 410) HEMATOCRIT (BEAKER) (test code = 34.6 % 40.1-51.0 L 411) MEAN CORPUSCULAR VOLUME (BEAKER) 87.8 fL 79.0-92.2 (test code = 753) MEAN CORPUSCULAR HEMOGLOBIN 28.7 pg 25.7-32.2 (BEAKER) (test code = 751) MEAN CORPUSCULAR HEMOGLOBIN CONC 32.7 GM/DL 32.3-36.5 (BEAKER) (test code = 752) RED CELL DISTRIBUTION WIDTH 13.1 % 11.6-14.4 (BEAKER) (test code = 412) PLATELET COUNT (BEAKER) (test 157 K/CU MM 150-450 code = 756) MEAN PLATELET VOLUME (BEAKER) 10.1 fL 9.4-12.4 (test code = 754) NUCLEATED RED BLOOD CELLS 0 /100 WBC 0-0 (BEAKER) (test code = 413) NEUTROPHILS RELATIVE PERCENT 86 % (BEAKER) (test code = 429) LYMPHOCYTES RELATIVE PERCENT 4 % (BEAKER) (test code = 430) MONOCYTES RELATIVE PERCENT 8 % (BEAKER) (test code = 431) EOSINOPHILS RELATIVE PERCENT 1 % (BEAKER) (test code = 432) BASOPHILS RELATIVE PERCENT 1 % (BEAKER) (test code = 437) NEUTROPHILS ABSOLUTE COUNT 3.66 K/ L 1.78-5.38 (BEAKER) (test code = 670) LYMPHOCYTES ABSOLUTE COUNT 0.18 K/ L 1.32-3.57 L (BEAKER) (test code = 414) MONOCYTES ABSOLUTE COUNT (BEAKER) 0.32 K/ L 0.30-0.82 (test code = 415) EOSINOPHILS ABSOLUTE COUNT 0.05 K/ L 0.04-0.54 (BEAKER) (test code = 416) BASOPHILS ABSOLUTE COUNT (BEAKER) 0.02 K/ L 0.01-0.08 (test code = 417) IMMATURE GRANULOCYTES-RELATIVE 0 % 0-1 PERCENT (BEAKER) (test code = 2801) COMP. METABOLIC PANEL (95029)2020-12-23 14:43:18 Test Item Value Reference Range Interpretation Comments NA (test code = 137 mmol/L 135-145 8113222063) K (test code = 4.3 mmol/L 3.5-5.0 5289222285) CL (test code = 104 mmol/L 98-108 3874740785) CO2 TOTAL (test code = 27 mmol/L 23-31 9489285974) AGAP (test code = 2-16 2336497928) BUN (test code = 21 mg/dL 7-23 7802725517) GLUCOSE (test code = 131 mg/dL 70-110 H 6542593159) CREATININE (test code = 1.20 mg/dL 0.60-1.25 8452129641) TOTAL BILI (test code = 0.4 mg/dL 0.1-1.1 6735817680) CALCIUM (test code = 9.4 mg/dL 8.6-10.6 6945436607) T PROTEIN (test code = 7.7 g/dL 6.3-8.2 8710764970) ALBUMIN (test code = 4.3 g/dL 3.5-5.0 4570244493) ALK PHOS (test code = 70 U/L 34-122 7861694381) ALTv (test code = 25 U/L 5-50 1742-6) AST(SGOT) (test code = 28 U/L 13-40 7014376019) eGFR (test code = mL/min/1.73m2 1256750028) KAMRYN (test code = KAMRYN) Association of Glomerular Filtration Rate (GFR) and Staging of Kidney Disease* + --+ --+ ------+| GFR (mL/min/1.73 m2) ?| With Kidney Damage ?| ?Without Kidney Damage+ --------+ --------+ +| ?>90 ?| ?Stage one ?| ? Normal ?+ ---+ ---+ -------+| ?60-89 ?| ?Stage two ?| ? Decreased GFR ? + --+ --+ ------+| ?30-59 ?| ?Stage three ?| ? Stage three ? + --+ --+ ------+| ?15-29 ?| ?Stage four ? | ? Stage four ?+ ---+ ---+ -------+| ?<15 (or dialysis) ? ?| ?Stage five ? | ? Stage five ?+ ---+ ---+ -------+ *Each stage assumes the associated GFR [...] or abnormalities in imaging tests). Lab Interpretation Abnormal (test code = 13172-5) [facility] WITH [id number] 14:37:39 Test Item Value Reference Range Interpretation Comments WBC (test code = See_Comment [Automated message] 6690-2) The system Opp[employer] Views generated this result transmitted ref erence range: 4.20 - 1 0.70 10*3/?L. The re ference range was not u sed to interpret this result as normal/abnor mal. RBC (test code = See_Comment [Automated message] 789-8) The system [employer] generated this result transmitted ref erence range: [...] RDW-SD (test code 40.8 fL 38.5-51.6 = 92044-3) RDW-CV (test code 12.3 % 12.1-15.4 = 788-0) PLT (test code = See_Comment [Automated message] 777-3) The system [employer] generated this result transmitted ref erence range: 150 - 32 8 10*3/?L. The re ference range was not u sed to interpret this result as normal/abnor mal. MPV (test code = 9.9 fL 9.8-13.0 26617-0) NRBC/100 WBC (test See_Comment [Automat ed message] code = 5814056519) The syste m which generated this result transmitted ref erence range: 0.0 - 10 .0 /100 WBCs. The refer ence range was not u sed to interpret this result as normal/abnor mal. NRBC x10^3 (test <0.01 See_Comment [Automated message] code = 1073984022) The syste m which generated this result transmitted ref erence range: 10*3/?L. The reference range was not used to interpr et this result as normal/abnormal . GRAN MAT (NEUT) % 68.1 % (test code = 770-8) IMM GRAN % (test 0.40 % code = 0824346603) LYMPH % (test code 21.4 % = 736-9) MONO % (test code 7.1 % = 5905-5) EOS % (test code = 2.2 % 713-8) BASO % (test code 0.8 % = 706-2) GRAN MAT 5.68 10*3/uL 1.99-6.95 x10^3(ANC) (test code = 7332997881) IMM GRAN x10^3 0.03 10*3/uL 0.00-0.06 (test code = 6498778984) LYMPH x10^3 (test 1.78 10*3/uL 1.09-3.23 code = 731-0) MONO x10^3 (test 0.59 10*3/uL 0.36-1.02 code = 742-7) EOS x10^3 (test 0.18 10*3/uL 0.06-0.53 code = 711-2) BASO x10^3 (test 0.07 10*3/uL 0.01-0.09 code = 704-7) [facility] SHOULDER JNT LT WCLINICAL INDICATION: M75.102 Unsp [...] / INJECTIONCLINICAL INDICATION: M25.512 Pain in left wctbhgflL48.102 Unsp rotatr-cuff tear/ruptr of left shoulder, not [...] - PQRS 145: 6045F For Official Use Only
[2021-07-31 15:44] LABS: Absolute Lymphocytes (CBC) 1.1 K/uL (0.7-4.9); Hematocrit 34.8 % (39.6-49.0); Lymphocytes % 12.8 % (15.3-44.8); MPV 7.1 fL (7.6-11.3); RBC Red Blood Cell Count 4.18 M/uL (4.33-5.43)
[2021-07-31 15:48] LABS: Protime INR 1.25
[2021-07-31 16:02] LABS: BUN Blood Urea Nitrogen 9 mg/dL (7-18); Bicarbonate 25 mmol/L (21-32); Glucose Level 168 mg/dL (74-106); Magnesium 2.1 mg/dL (1.8-2.4); NT PRO-BNP 465 pg/mL (<125); Potassium 3.5 mmol/L (3.5-5.1); Sodium Level 134 mmol/L (136-145); Troponin High Sensitivity 4.1 pg/mL (<58.9)
[2021-07-31] MEDS ORDERED: LEVALBUTEROL 1.25 MG/3 ML NEB ONE (16:25)
[2021-07-31] MEDS ORDERED: HYDROCODONE/CHLORPHEN 5 ML/OSYR ONE (16:25)
[2021-07-31 16:40] LABS: SARS-COV-2 RT PCR NEGATIVE (NEGATIVE)
[2021-07-31] MEDS ORDERED: ONDANSETRON 4 MG (ODT) TAB ONE (16:40)
--- NOTE | 2021-07-31 16:50 | RAD REPORT ---
EXAM DESCRIPTION: RAD - Chest Single View - 07/31/2021 4:01 pm CLINICAL HISTORY: SOB COMPARISON: Portable 05/05/2021 TECHNIQUE: AP portable chest image was obtained 07/31/2021 4:01 pm . FINDINGS: Chronic interstitial lung disease is present. No dense mass or consolidations seen. Upper lobe vasculature within normal limits. Heart size is normal. Right-sided Port-A-Cath is still in plac e. No measurable pleural effusion and no pneumothorax. No acute bony abnormality seen. No acute aorti c findings suspected. IMPRESSION: Extensive chronic interstitial lung pattern not substantially different from comparison. Severity of chronic disease could mask interstitial edema or infiltrate.
--- NOTE | 2021-07-31 18:05 | ER ---
Nurse's Notes [facility] Name: Chuy Mccoy Age: 60 yrs Sex: Male : 1960 Arrival Date: 07/31/2021 Time: 14:44 Bed 6 Private MD: Diagnosis: Cough Presentation: 07/31 15:02 Chief complaint: Patient states: SOB and productive cough x 2 days; stated feeding tube vg1 placed 3-4 weeks ago; chemo 7 weeks ago and radiation 5 weeks ago due to esophageal cancer. Pt states has a Fentanyl patch that was placed July 29, on left shoulder. Coronavirus screen: Vaccine status: Patient reports being unvaccinated. Client denies travel out of the [place] in the last 14 days. Ebola Screen: Patient denies exposure to infectious person. Patient denies travel to an Ebola-affected area in the 21 days before illness onset. Initial Sepsis Screen: Does the patient meet any 2 criteria? RR > 20 per min. HR > 90 bpm. Does the patient have a suspected source of infection? No. Patient's initial sepsis screen is negative. Risk Assessment: Do you want to hurt yourself or someone else? Patient reports no desire to harm self or others. Onset of symptoms was July 29, 2021. 15:02 Method Of Arrival: Ambulatory vg1 15:02 Acuity: BERTA 3 vg1 Triage Assessment: 15:06 General: Appears uncomfortable, Behavior is calm, cooperative. Pain: Complains of pain vg1 in generalize body Pain currently is 8 out of 10 on a pain scale. Respiratory: Reports shortness of breath at rest on exertion cough that is productive, Onset: The symptoms/episode began/occurred x 2 days ago, the patient has moderate shortness of breath. Historical: - Allergies: 15:06 No Known Allergies; vg1 - PMHx: 15:06 Cancer; diabetes mellitus; vg1 - Immunization history:: Client reports having NOT received the Covid vaccine. - Social history:: Smoking status: Patient/guardian denies using tobacco, the patient reports quitting approximately 1 years ago. Screenin:49 Abuse screen: Denies threats or abuse. Denies injuries from another. Nutritional jl7 screening: No deficits noted. Tuberculosis screening: No symptoms or risk factors identified. Fall Risk IV access (20 points). Total Brandon Fall Scale indicates No Risk (0-24 pts). Assessment: 16:00 General: Appears in no apparent distress. uncomfortable, Behavior is calm, cooperative, jl7 appropriate for age. Pain: Complains of pain in All over Pain currently is 8 out of 10 on a pain scale. Neuro: Level of Consciousness is awake, alert, obeys commands. Cardiovascular: Rhythm is regular. Respiratory: Airway is patent Respiratory effort is even, unlabored, Respiratory pattern is regular, symmetrical, Breath sounds are clear in right upper lobe and left upper lobe. GI: Reports nausea. Derm: Skin is pink, warm \T\ dry. 16:53 Reassessment: Patient appears in no apparent distress at this time. No changes from jl7 previously documented assessment. Patient and/or family updated on plan of care and expected duration. Pain level reassessed. Patient is alert, oriented x 3, equal unlabored respirations, skin warm/dry/pink. Vital Signs: 15:02 BP 123 / 74; Pulse 105; Resp 24; Temp 97.7(TE); Pulse Ox 95% on R/A; Height 5 ft. 9 in. vg1 (175.26 cm); Pain 8/10; 16:49 BP 136 / 83; Pulse 111; Resp 17 S; Pulse Ox 98% on R/A; jl7 18:48 BP 154 / 93; Pulse 110; Resp 15 S; Pulse Ox 93% on R/A; jl7 ED Course: 14:44 Patient arrived in ED. [facility] 14:44 Thi Brantley, FEDE is Primary Nurse. [facility] 14:46 Tyler Garay PA is PHCP. [facility] 14:46 Jamie Cardoso MD is Attending Physician. [facility] 15:01 Abundio Barnes NP is PHCP. pm1 15:01 Jamie Cardoso MD is Attending Physician. pm1 15:06 Triage completed. vg1 15:06 Arm band placed on. vg1 15:42 Inserted saline lock: 22 gauge in left antecubital area, using aseptic technique. Blood ss collected. 16:03 XRAY Chest (1 view) In Process Unspecified. EDMS 16:16 Angelica Dick, FEDE is Primary Nurse. jl7 16:49 Patient has correct armband on for positive identification. Bed in low position. Call jl7 light in reach. Side rails up X 1. Client placed on continuous cardiac and pulse oximetry monitoring. NIBP monitoring applied. 16:49 Initial lab(s) drawn, by ED staff, sent to lab. EKG done, by ED staff, reviewed by jl7 Jamie Cardoso MD. 19:18 No provider procedures requiring assistance completed. IV discontinued, intact, jl7 bleeding controlled, No redness/swelling at site. Pressure dressing applied. Administered Medications: 16:30 Drug: Xopenex (levalbuterol) 2.5 mg Route: Inhalation; jl7 18:50 Follow up: Response: No adverse reaction jl7 16:41 Drug: Zofran (Ondansetron) 4 mg Route: PO; jl7 18:50 Follow up: Response: No adverse reaction; Nausea is decreased jl7 16:49 Drug: Tussionex Pennkinetic ER (chlorpheniramine-hydrocodone) Suspension 5 ml Route: PO;jl7 18:50 Follow up: Response: No adverse reaction jl7 18:35 Drug: Rocephin (cefTRIAXone) 1 grams Route: IV; Rate: calculated rate; Site: left jl7 antecubital; 18:40 Follow up: Response: No adverse reaction; IV Status: Completed infusion jl7 18:40 Drug: SOLU-Medrol (methylPrednisoLONE) 80 mg Route: IVP; Site: left antecubital; jl7 18:50 Follow up: Response: Medication administered at discharge. jl7 18:45 Drug: Ketorolac 30 mg Route: IVP; Site: left antecubital; jl7 19:19 Follow up: Response: No adverse reaction; Pain is decreased jl7 18:51 Not Given (Other Intervention Used): morphine 4 mg IVP once; RASS on ADMIN: Combtv4, jl7 Very Agttd3, Agttd2, Rstlss1, AlertClm0, Drwsy-1, Lt Sdtn-2, Mod Sdtn-3, Dp Sdtn-4, UnArsble-5 18:51 Not Given (Other Intervention Used): Zofran (Ondansetron) 4 mg IVP once; over 2 minutes jl7 Outcome: 18:04 Discharge ordered by . pm1 19:18 Discharged to home via wheelchair. jl7 19:18 Condition: stable 19:18 Discharge instructions given to patient, family, Instructed on discharge instructions, follow up and referral plans. medication usage, Demonstrated understanding of instructions, follow-up care, medications, Prescriptions given X 3. 19:19 Patient left the ED. jl7 Signatures: Dispatcher [employer] EDMS Tyler Garay PA PA jmm Smirch, Shelby, RN RN ss Abundio Barnes, HOT END OPERATOR HOT END OPERATOR pm1 Angelica Dick RN RN jl7 Lucero Liu RN RN 1 Thi Brantley RN RN jh6 Corrections: (The following items were deleted from the chart) 15:08 15:02 Chief complaint: Patient states: SOB and productive cough x 2 days; stated vg1 feeding tube placed 3-4 weeks ago; chemo 7 weeks ago and radiation 5 weeks ago due to esophageal cancer. vg1 15:08 15:06 Respiratory: Reports shortness of breath at rest on exertion cough that is vg1 productive, Onset: The symptoms/episode began/occurred x 2 days ago, the patient has mild shortness of breath vg1 16:53 16:49 BP 141 / 91; Pulse 74bpm; Resp 15bpm; Spontaneous; Pulse Ox 98% RA; jl7 jl7
--- NOTE | 2021-07-31 18:05 | EDPHYS ---
Physician Documentation [facility] Name: Chuy Mccoy Age: 60 yrs Sex: Male : 1960 Arrival Date: 07/31/2021 Time: 14:44 Bed 6 Private MD: ED Physician Jamie Cardoso HPI: 07/31 15:08 This 60 yrs old Male presents to ER via Ambulatory with complaints of Shortness Of pm1 Breath, Cough. 15:08 The patient has shortness of breath at rest, with light activity. Onset: The pm1 symptoms/episode began/occurred 2 day(s) ago. The patient's shortness of breath is aggravated by light activity. Associated signs and symptoms: Pertinent positives: productive cough, Pertinent negatives: fever, nausea, vomiting, diarrhea. Severity of symptoms: in the emergency department the symptoms are worse. The patient has not experienced similar symptoms in the past. The patient has not recently seen a physician. Patient with history of esophageal cancer. Patient has PEG tube placed 3-4 weeks ago. Receiving chemo and radiation therapy. Historical: - Allergies: 15:06 No Known Allergies; vg1 - PMHx: 15:06 Cancer; diabetes mellitus; vg1 - Immunization history:: Client reports having NOT received the Covid vaccine. - Social history:: Smoking status: Patient/guardian denies using tobacco, the patient reports quitting approximately 1 years ago. ROS: 15:08 Constitutional: Negative for fever, chills, and weight loss, Cardiovascular: Negative pm1 for chest pain, palpitations, and edema. 15:08 Back: Negative for injury and pain, : Negative for injury, bleeding, discharge, and swelling, MS/Extremity: Negative for injury and deformity, Skin: Negative for injury, rash, and discoloration, Neuro: Negative for headache, weakness, numbness, tingling, and seizure. 15:08 Cardiovascular: Positive for chest pain, with cough. 15:08 Respiratory: Positive for cough, with yellow sputum, shortness of breath, on exertion. 15:08 Abdomen/GI: Negative for abdominal pain, nausea, vomiting, and diarrhea. 15:08 All other systems are negative. Exam: 15:08 Constitutional: This is a well developed, well nourished patient who is awake, alert, pm1 and in no acute distress. Head/Face: Normocephalic, atraumatic. 15:08 Back: No spinal tenderness. No costovertebral tenderness. Full range of motion. Skin: Warm, dry with normal turgor. Normal color with no rashes, no lesions, and no evidence of cellulitis. MS/ Extremity: Pulses equal, no cyanosis. Neurovascular intact. Full, normal range of motion. 15:08 Cardiovascular: Exam negative for acute changes, Rate: normal, Rhythm: regular, Pulses: no pulse deficits are appreciated, Heart sounds: normal. 15:08 Respiratory: Exam negative for acute changes, respiratory distress, shortness of breath, Breath sounds: rhonchi, that are mild, are heard in the right posterior middle lobe and right posterior lower lobe. 15:08 Abdomen/GI: Exam negative for acute changes, Inspection: abdomen appears normal, Palpation: abdomen is soft and non-tender, in all quadrants. 15:08 Neuro: Exam negative for acute changes, Orientation: is normal, Mentation: is normal, Motor: is normal, moves all fours. Vital Signs: 15:02 BP 123 / 74; Pulse 105; Resp 24; Temp 97.7(TE); Pulse Ox 95% on R/A; Height 5 ft. 9 in. vg1 (175.26 cm); Pain 8/10; 16:49 BP 136 / 83; Pulse 111; Resp 17 S; Pulse Ox 98% on R/A; jl7 18:48 BP 154 / 93; Pulse 110; Resp 15 S; Pulse Ox 93% on R/A; jl7 MDM: 15:09 Patient medically screened. pm1 15:50 Data reviewed: vital signs. Data interpreted: Pulse oximetry: on room air is 95 %. pm1 Interpretation: normal. 18:41 ED course: Patient requesting Toradol instead of narcotics. pm1 02 15:08 Order name: Basic Metabolic Panel; Complete Time: 17:05 pm1 07/31 15:08 Order name: CBC with Diff; Complete Time: 15:50 pm1 07/31 15:08 Order name: Magnesium; Complete Time: 17:05 pm1 02 15:08 Order name: NT PRO-BNP; Complete Time: 17:05 pm1 07/31 15:08 Order name: PT-INR; Complete Time: 15:50 pm1 07/31 15:08 Order name: Troponin HS; Complete Time: 17:05 pm1 07/31 15:08 Order name: XRAY Chest (1 view); Complete Time: 17:05 pm1 07/31 15:08 Order name: COVID-19/FLU A+B (Document "Date of Onset" if Symptomatic); Complete Time: pm1 17:05 07/31 15:08 Order name: EKG; Complete Time: 15:08 pm1 07/31 15:08 Order name: Cardiac monitoring; Complete Time: 16:49 pm1 07/31 15:08 Order name: EKG - Nurse/Tech; Complete Time: 16:49 pm1 07/31 15:08 Order name: IV Saline Lock; Complete Time: 15:41 pm1 07/31 15:08 Order name: Labs collected and sent; Complete Time: 15:41 pm1 07/31 15:08 Order name: O2 Per Protocol; Complete Time: 16:18 pm1 07/31 15:08 Order name: O2 Sat Monitoring; Complete Time: 16:18 pm1 Administered Medications: 16:30 Drug: Xopenex (levalbuterol) 2.5 mg Route: Inhalation; jl7 18:50 Follow up: Response: No adverse reaction jl7 16:41 Drug: Zofran (Ondansetron) 4 mg Route: PO; jl7 18:50 Follow up: Response: No adverse reaction; Nausea is decreased jl7 16:49 Drug: Tussionex Pennkinetic ER (chlorpheniramine-hydrocodone) Suspension 5 ml Route: PO;jl7 18:50 Follow up: Response: No adverse reaction jl7 18:35 Drug: Rocephin (cefTRIAXone) 1 grams Route: IV; Rate: calculated rate; Site: left jl7 antecubital; 18:40 Follow up: Response: No adverse reaction; IV Status: Completed infusion jl7 18:40 Drug: SOLU-Medrol (methylPrednisoLONE) 80 mg Route: IVP; Site: left antecubital; jl7 18:50 Follow up: Response: Medication administered at discharge. jl7 18:45 Drug: Ketorolac 30 mg Route: IVP; Site: left antecubital; jl7 19:19 Follow up: Response: No adverse reaction; Pain is decreased jl7 18:51 Not Given (Other Intervention Used): morphine 4 mg IVP once; RASS on ADMIN: Combtv4, jl7 Very Agttd3, Agttd2, Rstlss1, AlertClm0, Drwsy-1, Lt Sdtn-2, Mod Sdtn-3, Dp Sdtn-4, UnArsble-5 18:51 Not Given (Other Intervention Used): Zofran (Ondansetron) 4 mg IVP once; over 2 minutes jl7 Disposition: 08/01 12:22 Co-signature as Attending Physician, Jamie Cardoso MD. rn Disposition Summary: 07/31/21 18:04 Discharge Ordered Location: Home pm1 Problem: new pm1 Symptoms: have improved pm1 Condition: Stable pm1 Diagnosis - Cough pm1 Followup: pm1 - With: Emergency Department - When: As needed - Reason: Worsening of condition Followup: pm1 - With: Private Physician - When: 2 - 3 days - Reason: Recheck today's complaints, Continuance of care, Re-evaluation by your physician Discharge Instructions: - Discharge Summary Sheet pm1 - Cough, Adult pm1 Forms: - Medication Reconciliation Form pm1 - Thank You Letter pm1 - Antibiotic Education pm1 - Prescription Opioid Use pm1 Prescriptions: - azithromycin 200 mg/5 mL Oral suspension for reconstitution - take 12.5 milliliter by ORAL route once daily for 1 day then 6.25 milliliters pm1 (250 mg) by oral route once daily for 4 days; 37.5 milliliter; Refills: 0, Product Selection Permitted - Guaifenesin AC 10-100 mg/5 mL Oral Liquid - take 10 milliliters by ORAL route every 4 hours As needed; 240 milliliter; pm1 Refills: 0, Product Selection Permitted - prednisolone 15 mg/5 mL Oral Solution - take 7.5 milliliter by ORAL route 2 times per day for 5 days with food; 75 pm1 milliliter; Refills: 0, Product Selection Permitted - Ventolin HFA 90 mcg/actuation Inhalation HFA aerosol inhaler - inhale 2 puff by INHALATION route every 4-6 hours As needed; 1 Inhaler; pm1 Refills: 0, Product Selection Permitted Signatures: Dispatcher [employer] EDJamie Otoole MD MD rn Abundio Barnes, [employer] INS[employer]OR pm1 Angelica Dick, RN RN jl7 Lucero Liu RN RN vg1
[2021-07-31] MEDS ORDERED: CEFTRIAXONE 1000 MG/VIAL ONE (18:27)
[2021-07-31] MEDS ORDERED: NA CHLORIDE 0.9% 50 ML ONE (18:27)
[2021-07-31] MEDS ORDERED: METHYLPREDNISOLONE 40 MG INJ ONE (18:27)
[2021-07-31] MEDS ORDERED: KETOROLAC 30 MG/ML INJ ONE (18:45)
[2021-07-31] MEDS ORDERED: MORPHINE 4 MG/ML SYR ONE (18:45)
[2021-07-31 19:54] VITALS: TEMP 97.7
[2021-07-31 19:57] VITALS: BP 154/93; O2SAT 93
--- NOTE | 2021-08-01 10:51 | EKG ---
Test Date: 2021-07-31 Test Time: 16:47:14 Forming Press Operator: BRADFORD MEASUREMENT RESULTS: Intervals: Rate: 112 NE: 146 QRSD: 62 QT: 302 QTc: 412 [place]: P: 51 NE: 146 QRS: 12 T: 24 INTERPRETIVE STATEMENTS: Sinus tachycardia Possible Left atrial enlargement Nonspecific T wave abnormality Abnormal ECG No previous ECG available for comparison Electronically Signed On 08-01-21 10:50:13 CDT by Zoran Chand
== END 2021-07-31 19:19 | disposition home or self-care (01) ==
LOC: ER 14:29
DX: R05.9 Cough, unspecified (principal); R06.02 Shortness of breath; C15.9 Malignant neoplasm of esophagus, unspecified; Z20.822 Contact with and (suspected) exposure to COVID-19; E11.9 Type 2 diabetes mellitus without complications
CPT/HCPCS: 93005; 85025; 80048; 36415; 83735; 85610; 84484; 83880; 0240U; 71045; J2920; 96374; 96375; 99284